=== PATIENT | male | born 1935 | race Caucasian/White ===

== ENCOUNTER 2020-09-30 16:19 | Emergency (ER) | payer OTHER, MEDICARE, BC, SELFPAY ==
--- NOTE | ~2020-09-30 | CT_ITS ---
EXAMINATION: CT ABDOMEN AND PELVIS WITH CONTRAST CLINICAL INFORMATION: Abdominal tenderness, bloating, nausea. Question hernia. COMPARISON: None TECHNIQUE: Multidetector volumetric images were obtained from the superior aspect of the liver through the pubic symphysis following administration 85 mL of Omnipaque 350 intravenous contrast. Sagittal and coronal reformatted images were obtained on the technologist's workstation. Oral contrast: No This CT examination was performed using dose optimization techniques as appropriate, variously including the following: *Automated exposure control *Adjustment of mA and/or kV according to patient size (this includes techniques or standardized protocols for targeted exams where dose is matched to indication/reason for exam; i.e. extremities or head) *Use of iterative reconstruction technique DLP: 438 mGy-cm FINDINGS: LUNG BASES: 0.7 cm left lower lobe groundglass nodule on series 7 image 11. Coronary artery calcifications are present. LIVER, GALLBLADDER, AND BILIARY TREE: The liver is normal in size, shape, and attenuation. No biliary ductal dilatation. 1.3 cm simple cyst in the left lobe of the liver. Multiple additional hypoattenuating lesions are seen scattered in the liver which are too small to fully characterize.. The gallbladder is unremarkable with no evidence of radiopaque gallstones, gallbladder wall thickening, or obvious pericholecystic inflammatory changes. PANCREAS: Unremarkable. SPLEEN: Unremarkable. ADRENAL GLANDS: Unremarkable. KIDNEYS AND URETERS: The kidneys are normal in size, shape, and attenuation. No hydronephrosis, hydroureter, or calculi seen. Mild symmetric perinephric stranding. 4.3 cm simple cyst exophytic at the upper pole of the left kidney. Additional indeterminant hypoattenuating lesions are seen in the left renal parenchyma at the mid to lower pole. BLADDER: Unremarkable. GASTROINTESTINAL TRACT: Small hiatal hernia. The stomach is decompressed. Normal caliber small bowel. No bowel obstruction. Normal appendix. Diffuse colonic diverticulosis noted. No diverticulitis. No free air. No free fluid. ABDOMINAL WALL: No significant hernia is appreciated. LYMPH NODES: Normal. VASCULAR: Normal caliber aorta with mild atherosclerotic calcification. PELVIC VISCERA: The prostate and seminal vesicles are unremarkable. OSSEOUS STRUCTURES: Bilateral L5 pars defects. Advanced degenerative changes throughout the visualized spine. No acute or suspicious osseous abnormality. Moderate degenerative changes of the hips. Chondrocalcinosis. CT/CT abdomen pelvis w con IMPRESSION: No bowel obstruction. No acute inflammatory changes. Diverticulosis without diverticulitis. Multiple hypoattenuating lesions are seen in the liver and left kidney. While the largest of these lesions are consistent with simple cysts, many additional are too small to further characterize. If clinically indicated an ultrasound could be performed on a nonemergent basis. Small hiatal hernia. No abdominal wall hernia.
[2020-09-30 16:38] VITALS: BP 136/65; PULSE 69; RESP 17; TEMP 36.7; O2SAT 95; BMI 22.7
[2020-09-30] MEDS: 0.9 % Sodium Chloride 1,000 ML 999 ML IVCONT (17:47)
[2020-09-30] MEDS: ondansetron HCL 4 MG/2 ML VIAL IVPUSH (17:50)
[2020-09-30] MEDS: Ketorolac Tromethamine 15 MG/ML VIAL IVPUSH (17:50)
--- NOTE | 2020-09-30 18:01 | ED.ABDPAIN ---
HPI - Abdominal Pain General Chief Complaint: Abdominal Pain Stated Complaint: abd pain Time Seen by Provider: 09/30/20 17:18 Source: patient Mode of arrival: ambulatory History of Present Illness HPI narrative: 84-year-old male with past medical history of hypertension, basal cell carcinoma, presenting to the ED complaining of abdominal pain /distension and nausea x a couple days. last BM today. Admits pain is intermittent, fluctuating in intensity, without radiation. Denies fever, chills, vomiting, diarrhea, constipation, dysuria/ hematuria, flank pain MD elicited complaint: abdominal pain Related Data Previous Rx's Medication Instructions Recorded alum-mag hydroxide-simeth [Maalox 5 ml PO 5XD PRN #30 ml 09/30/20 Advanced] dicyclomine 20 mg PO QID PRN #14 tab 09/30/20 famotidine [Pepcid] 20 mg PO BEDTIME #14 tab 09/30/20 ondansetron HCl [Zofran] 4 mg PO Q8H PRN #10 tab 09/30/20 Allergies Allergy/AdvReac Type Severity Reaction Status Date / Time No Known Allergies Allergy Mild NONE Verified 09/30/20 16:37 Review of Systems Review of Systems Constitutional: No Weight loss, No Fever, No Fatigue, No Malaise Cardiovascular: No Chest Pain, No SOB, No Edema Respiratory: No Cough, No Wheezing Gastrointestinal: + Nausea, No Vomiting, No Diarrhea, No Constipation, + Abdominal pain Genitourinary: No Dysuria, No Urinary Frequency, No Hematuria, No Flank Pain, No Urinary Flow Changes, No Hesitancy Musculoskeletal: No joint pain, No Myalgias Skin: No Skin Lesions, No rash Neuro: No Weakness, No Numbness, No Headache Yes all other systems are reviewed and are negative Physical Exam Vital Signs: Vital Signs: Last Vital Signs Temp 98.0 F 09/30/20 16:38 Pulse 69 09/30/20 16:38 Resp 17 09/30/20 16:38 BP 136/65 09/30/20 16:38 Pulse Ox 95 09/30/20 16:38 Body Mass Index 22.7 Const: General: cooperative and healthy appearing Orientation/consciousness: patient oriented x3 Limitations: no limitations HENMT: Head: Yes normal to inspection Ears: hearing grossly normal bilaterally General nose exam: Normal external nose present Face and sinus: Yes normal facial exam Eyes: General: appearance normal, both eyes and all related structures EOM: EOMs intact bilaterally Neck: Neck: Yes normal visual inspection Resp: Effort & Inspection: normal respiratory effort and not labored Cardio: Rate: regular rate GI: Other: +palpable ventral hernia, reducible Inspection: Yes normal to inspection Palpation (GI): Soft to palpation, Tenderness to palpation present (GI) (diffuse), no guarding and not rigid : General: Yes no CVA tenderness Back/Spine/Pelvis: Back: no CVA tenderness Skin: Rashes: no rashes Wounds: no wounds Neuro: General: patient oriented x3 Gait exam (Neuro): Normal gait present Extrem: General: Yes normal to inspection Course Course Course Narrative: - no leukocytosis, sodium 132, labs otherwise unremarkable /at patient's baseline, lactic negative - UA negative CT abdomen pelvis w con IMPRESSION: No bowel obstruction. No acute inflammatory changes. Diverticulosis without diverticulitis. Multiple hypoattenuating lesions are seen in the liver and left kidney. While the largest of these lesions are consistent with simple cysts, many additional are too small to further characterize. If clinically indicated an ultrasound could be performed on a nonemergent basis. Small hiatal hernia. No abdominal wall hernia. >> results discussed with patient including recent signs and symptoms and strict return precautions. Reports symptomatic improvement in the ED. Discussed recommended follow-up with PCP, he verbalized understanding feel safe for discharge home at this time MDM - Abdominal Pain MDM Narrative Medical decision making narrative: 84-year-old male with past medical history of hypertension, basal cell carcinoma, presenting to the ED complaining of abdominal pain /distension and nausea x a couple days. On exam VSS, NAD/well-appearing, abdomen soft with diffuse tenderness to palpation, no rebound or guarding. Palpable ventral hernia that is reducible. Concern for appendicitis, diverticulitis, SBO, vs ?incarcerated/ strangulated hernia. Plan: Labs, UA, CT AP, IVF, antiemetics, reassess Medical Records Attestation: I reviewed the patient's medical records. Lab Data Attestation: I reviewed the patient's lab results. Result diagrams: 09/30/20 17:44 09/30/20 17:44 Labs: Lab Results 09/30/20 09/30/20 09/30/20 Range/Units 17:44 17:44 17:44 WBC 10.6 (4.8-10.8) X10*3/uL RBC 5.43 (4.60-5.80) X10*6/uL Hgb 17.2 (14.0-18.0) g/dl Hct 49.3 (42-52) % MCV 90.8 (80-98) fL MCH 31.7 (27.0-33.0) pg MCHC 34.9 (31.0-36.0) g/dl RDW 12.2 (11.0-16.0) % Plt Count 213 (160-400) X10*3/uL MPV 10.5 (9.4-12.4) fL Immature Gran % (Auto) 0.9 H (0.0-0.4) % Neut % (Auto) 65.4 (45-73) % Lymph % (Auto) 17.0 L (20-40) % Wallace % (Auto) 15.7 H (2-11) % Eos % (Auto) 0.5 (0-4) % Baso % (Auto) 0.5 (0-2) % Lymph # (Auto) 1.8 (1.2-4.9) X10*3/uL Wallace # (Auto) 1.7 H (0.1-1.2) X10*3/uL Eos # (Auto) 0.1 (0.0-0.4) X10*3/uL Baso # (Auto) 0.1 (0.0-0.2) X10*3/uL Abs Immat Gran (auto) 0.10 H (0.00-0.03) X10*3/uL Absolute Neuts (auto) 6.9 (2.0-8.3) X10*3/uL Absolute Nucleated RBC 0.000 (0.0-0.012) X10*3/uL Nucleated RBC % (auto) 0.0 (0.0-0.2) /100WBC Smear Tech's Comments VERIFIED PT 11.4 (9.9-13.0) SEC INR 1.0 (0.9-1.1) APTT 31.4 (24.1-38.0) SEC Sodium 132 L (135-145) mmol/L Potassium 3.6 (3.3-5.1) mmol/L Chloride 97 (96-108) mmol/L Carbon Dioxide 23 (22-29) mmol/L Anion Gap 16 (12-20) BUN 10 (9-16) mg/dL Creatinine 0.88 (0.5-1.4) mg/dL Estim Creat Clear Calc 58.1 Estimated GFR > 60 Random Glucose 105 (60-115) mg/dL Lactic Acid (0.5-2.0) mmol/L Calcium 9.3 (8.4-10.2) mg/dL Magnesium 1.6 (1.6-2.6) mg/dL Total Bilirubin 1.3 H (0.0-1.0) mg/dL Direct Bilirubin 0.5 (0.0-0.5) mg/dL AST 15 (5-37) U/L ALT 12 (0-40) U/L Alkaline Phosphatase 98 (39-117) U/L Total Protein 6.6 (6.5-8.0) g/dL Albumin 4.1 (3.5-5.0) g/dL Lipase 13 (8-78) U/L Urine Color Urine Appearance Urine pH (5.0-8.0) Ur Specific Pollock (1.005-1.025) Urine Protein (NEG-TRACE) MG/DL Urine Glucose (UA) (NEG) MG/DL Urine Ketones (NEG) MG/DL Urine Blood (NEG) Urine Nitrite (NEG) Ur Leukocyte Esterase (NEG) Urine RBC (0) /HPF Urine WBC (0-4) /HPF Ur Squamous Epith Cells /LPF Urine Bacteria /LPF 09/30/20 09/30/20 Range/Units 17:44 17:44 WBC (4.8-10.8) X10*3/uL RBC (4.60-5.80) X10*6/uL Hgb (14.0-18.0) g/dl Hct (42-52) % MCV (80-98) fL MCH (27.0-33.0) pg MCHC (31.0-36.0) g/dl RDW (11.0-16.0) % Plt Count (160-400) X10*3/uL MPV (9.4-12.4) fL Immature Gran % (Auto) (0.0-0.4) % Neut % (Auto) (45-73) % Lymph % (Auto) (20-40) % Wallace % (Auto) (2-11) % Eos % (Auto) (0-4) % Baso % (Auto) (0-2) % Lymph # (Auto) (1.2-4.9) X10*3/uL Wallace # (Auto) (0.1-1.2) X10*3/uL Eos # (Auto) (0.0-0.4) X10*3/uL Baso # (Auto) (0.0-0.2) X10*3/uL Abs Immat Gran (auto) (0.00-0.03) X10*3/uL Absolute Neuts (auto) (2.0-8.3) X10*3/uL Absolute Nucleated RBC (0.0-0.012) X10*3/uL Nucleated RBC % (auto) (0.0-0.2) /100WBC Smear Tech's Comments PT (9.9-13.0) SEC INR (0.9-1.1) APTT (24.1-38.0) SEC Sodium (135-145) mmol/L Potassium (3.3-5.1) mmol/L Chloride (96-108) mmol/L Carbon Dioxide (22-29) mmol/L Anion Gap (12-20) BUN (9-16) mg/dL Creatinine (0.5-1.4) mg/dL Estim Creat Clear Calc Estimated GFR Random Glucose (60-115) mg/dL Lactic Acid 1.3 (0.5-2.0) mmol/L Calcium (8.4-10.2) mg/dL Magnesium (1.6-2.6) mg/dL Total Bilirubin (0.0-1.0) mg/dL Direct Bilirubin (0.0-0.5) mg/dL AST (5-37) U/L ALT (0-40) U/L Alkaline Phosphatase (39-117) U/L Total Protein (6.5-8.0) g/dL Albumin (3.5-5.0) g/dL Lipase (8-78) U/L Urine Color YELLOW Urine Appearance CLEAR Urine pH 6.5 (5.0-8.0) Ur Specific Pollock <= 1.005 (1.005-1.025) Urine Protein NEG (NEG-TRACE) MG/DL Urine Glucose (UA) NEG (NEG) MG/DL Urine Ketones NEG (NEG) MG/DL Urine Blood TRACE (NEG) Urine Nitrite NEG (NEG) Ur Leukocyte Esterase NEG (NEG) Urine RBC 0-2 (0) /HPF Urine WBC 0-2 (0-4) /HPF Ur Squamous Epith Cells NONE /LPF Urine Bacteria NONE /LPF Discharge Plan Discharge Clinical Impression: Abdominal pain Patient Disposition: Home, Self-Care Instructions: Abdominal Pain (ED) Additional Instructions: your blood work was reassuring today in the ED Your CT scan was unremarkable other than some liver lesion and left kidney lesions that should be further assessed with an ultrasound Maalox, and Pepcid will help with acid reflux Zofran as an antinausea medication, take as needed Bentyl will help with abdominal spasming/pain, take as needed for abdominal discomfort Follow-up with her primary care doctor If her symptoms persist or worsen, pain becomes unbearable, have fever, persistent nausea / vomiting, or unable to eat please return to the ED Prescriptions: New ondansetron HCl [Zofran] 4 mg tablet 4 mg PO Q8H PRN (Reason: nausea and vomiting) Qty: 10 RF: 0 famotidine [Pepcid] 20 mg tablet 20 mg PO BEDTIME Qty: 14 RF: 0 alum-mag hydroxide-simeth [Maalox Advanced] 200-200-20 mg/5 mL suspension 5 ml PO 5XD PRN (Reason: dyspepsia) Qty: 30 RF: 0 dicyclomine 20 mg tablet 20 mg PO QID PRN (Reason: abdominal discomfort) Qty: 14 RF: 0 Referrals: Yakov Sandra MD [Primary Care Provider] - 2 days [facility] Past Medical History Attestation statement: The following information was validated with the patient. Medical History (Updated 09/30/20 @ 19:32 by DEYVI Rothman) Hypertension Skin cancer, basal cell Surgical History (Updated 09/30/20 @ 16:40 by Sherrell Summers RN) H/O shoulder surgery Knee joint replacement status Social History Social History Alcohol intake: never Smoked in Last 30 Days: No Use of substances other than those prescribed or required for medical reasons: No Advance Directives: No Advance Directives Information Provided: No
[2020-09-30 18:03] LABS: Glucose Urine UA NEG (NEG); Leukocyte Esterase Urine NEG (NEG); Nitrite Urine NEG (NEG); PH 6.5 (5.0-8.0); Specific Gravity - Urine <= 1.005 (1.005-1.025); Urine Blood TRACE (NEG); Urine Ketones NEG (NEG); Urine Protein NEG (NEG-TRACE)
[2020-09-30 18:05] LABS: Appearance Urine CLEAR; Color Urine YELLOW
[2020-09-30 18:10] LABS: Prothrombin Time 11.4 SEC (9.9-13.0)
[2020-09-30 18:12] LABS: Partial Thromboplastin Time 31.4 SEC (24.1-38.0); RBC Urine 0-2 /HPF (0); WBC Urine 0-2 /HPF (0-4)
[2020-09-30 18:18] LABS: Basophils Absolute Auto 0.1 X10*3/uL (0.0-0.2); Basophils Percent Auto 0.5 % (0-2); Eosinophils Absolute Auto 0.1 X10*3/uL (0.0-0.4); Eosinophils Percent Auto 0.5 % (0-4); Hematocrit 49.3 % (42-52); Hemoglobin 17.2 g/dl (14.0-18.0); Imm Gran Pct Auto 0.9 % (0.0-0.4); Lymphocytes Absolute Auto 1.8 X10*3/uL (1.2-4.9); MANUAL DIFF FLAG SCAN; Mean Corpuscular HGB Conc 34.9 g/dl (31.0-36.0); Mean Corpuscular Hemoglobin 31.7 pg (27.0-33.0); Mean Corpuscular Volume 90.8 fL (80-98); Mean Platelet Volume 10.5 fL (9.4-12.4); Monocytes Absolute Auto 1.7 X10*3/uL (0.1-1.2); Monocytes Percent Auto 15.7 % (2-11); Neutrophils Absolute Auto 6.9 X10*3/uL (2.0-8.3); Neutrophils Percent Auto 65.4 % (45-73); Platelet Count 213 X10*3/uL (160-400); Red Blood Count 5.43 X10*6/uL (4.60-5.80); Red Cell Distribution Width 12.2 % (11.0-16.0); SCAN SMEAR FLAG 1; White Blood Count 10.6 X10*3/uL (4.8-10.8)
[2020-09-30 18:23] LABS: Lactic Acid 1.3 mmol/L (0.5-2.0)
[2020-09-30 18:27] LABS: Alanine Aminotransferase 12 U/L (0-40); Albumin Level 4.1 g/dL (3.5-5.0); Alkaline Phosphatase 98 U/L (39-117); Anion Gap 16 (12-20); Aspartate Amino Transferase 15 U/L (5-37); Bilirubin Direct 0.5 mg/dL (0.0-0.5); Bilirubin Total 1.3 mg/dL (0.0-1.0); Blood Urea Nitrogen 10 mg/dL (9-16); Calcium 9.3 mg/dL (8.4-10.2); Carbon Dioxide 23 mmol/L (22-29); Chloride 97 mmol/L (96-108); Creatinine Clr Calc Pharmacy 58.1; Estimated Glomerular Filt Rate > 60; Glucose Random 105 mg/dL (60-115); Lipase 13 U/L (8-78); Magnesium 1.6 mg/dL (1.6-2.6); Potassium 3.6 mmol/L (3.3-5.1); Sodium 132 mmol/L (135-145); Total Protein 6.6 g/dL (6.5-8.0)
[2020-09-30 18:37] LABS: SLIDE REVIEW VERIFIED
[2020-09-30] MEDS: iohexoL 350 MG/ML 100 ML INFUS..BTL IV (18:54)
== END 2020-09-30 20:24 | disposition home or self-care (01) ==
PROVIDERS: Physician Assistant; Emergency Provider Emergency Medicine; PCP Internal Medicine
DX: R10.9 Unspecified abdominal pain (principal); I10 Essential (primary) hypertension
CPT/HCPCS: 36415; 74177; 80048; 80076; 81001; 83605; 83690; 83735; 85025; 85610; 85730; 96361; 96374; 96375; 99284; J1885; J2405; Q9967

== ENCOUNTER 2021-11-12 08:31 | Outpatient (REF) | payer MEDICARE, BC, SELFPAY ==
[2021-11-12 10:03] LABS: Anion Gap 16 (12-20); Carbon Dioxide 23 mmol/L (22-29); Chloride 102 mmol/L (96-108); Potassium 3.9 mmol/L (3.3-5.1); Sodium 137 mmol/L (135-145)
== END 2021-11-12 08:32 | disposition home or self-care (01) ==
LOC: HO.LAB 08:31
PROVIDERS: PCP Internal Medicine; Visit Provider Internal Medicine
DX: E87.1 Hypo-osmolality and hyponatremia (principal)
CPT/HCPCS: 36415; 80051

== ENCOUNTER 2021-12-21 09:30 | Emergency (ER) | payer OTHER, MEDICARE, BC, SELFPAY ==
--- NOTE | ~2021-12-21 | XR_ITS ---
EXAMINATION: XR HAND, LEFT CLINICAL INFORMATION: Pain COMPARISON: None TECHNIQUE: Left wrist is imaged in 3 views. FINDINGS: There is severe carpal arthropathy with diffuse joint narrowing, greatest proximal radial carpal compartment. The navicular is seated within a pressure erosion at distal radius. The capitate and hamate are retracted proximally. There is severe widening of the scapholunate joint consistent with scapholunate ligament tear. The lunate is displaced to the ulnar side. There is chondrocalcinosis in region of triangular fibrocartilage. Degenerative changes are present at the sigmoid notch. There is mild narrowing MCP joints. No erosive changes. The interphalangeal joints are grossly unremarkable. 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
[2021-12-21 09:55] VITALS: BP 124/57; PULSE 57; RESP 18; TEMP 36.9; O2SAT 98; BMI 22.5
[2021-12-21 11:30] VITALS: BP 147/71; PULSE 57; RESP 18; TEMP 37; O2SAT 97
--- NOTE | 2021-12-21 11:42 | ED_ITS ---
HPI - General Adult General Chief complaint: Wound/Laceration Stated complaint: wound on L hand Time Seen by Provider: 12/21/21 10:03 Source: patient and family (son) Mode of arrival: ambulatory Limitations: no limitations History of Present Illness HPI narrative: Patient is an 86 year old male presenting to the emergency department today with left hand pain. Patient states that his hand slipped down a piece of plywood and a large splinter went through his palm. Patient states that he was able to remove all of it without incident but now it is bleeding. Patient states that his tetanus shot was within the last 5 years. Patient denies any dizziness, lightheadedness, abdominal pain, nausea, vomiting, fever, chills, blurry vision, double vision, loss of vision, chest pain, difficulty breathing, shortness of breath, back pain, night sweats, pain with urination, increased urinary frequency, increased urinary urgency, blood in his urine or stool, syncope or a near syncopal episode, bowel incontinence, bladder incontinence, bowel retention, bladder retention, or any other complaints at this time. Onset (ago): hour(s) Location: left and upper extremity (hand) Radiation: non-radiation Severity: mild Severity scale (1-10): 2 Quality: dull Pain Consistency: constant Relieving factors: none Exacerbating factors: none Associated symptoms: denies other symptoms Treatments prior to arrival: none Related Data Previous Rx's Medication Instructions Recorded aluminum-mag hydroxide-simethicone 5 ml PO 5XD PRN dyspepsia #30 mL 09/30/20 200 mg-200 mg-20 mg/5 mL oral susp (Maalox Advanced) dicyclomine 20 mg tablet 20 mg PO QID PRN abdominal 09/30/20 discomfort #14 tabs famotidine 20 mg tablet (Pepcid) 20 mg PO BEDTIME #14 tabs 09/30/20 ondansetron HCl 4 mg tablet 4 mg PO Q8H PRN nausea and 09/30/20 (Zofran) vomiting #10 tabs cephalexin 500 mg capsule 500 mg PO Q6H 7 days #28 caps 12/21/21 Allergies Allergy/AdvReac Type Severity Reaction Status Date / Time No Known Allergies Allergy Mild NONE Verified 09/30/20 16:37 Review of Systems Constitutional: Constitutional: Reports no additional constitutional compl aints, Denies chills, Denies fever(s) and Denies night sweats Eyes: Eyes: Reports no additional eye complaints, Denies blurry vision, Denies change in vision, Denies diplopia, Denies eye discharge, Denies loss of vision and Denies eye pain ENT: Denies dizziness Cardiovascular: Cardiovascular: Reports no additional cardiovascular complaints, Denies chest pain, Denies lightheadedness, Denies Loss of Consciousness and Denies dyspnea Respiratory: Respiratory: Reports no additional respiratory complaints and Denies dyspnea Gastrointestinal: Gastrointestinal: Reports no additional gastrointestinal complaints, Denies abdominal pain, Denies melena, Denies hematochezia, Denies change in bowel habits and Denies change in stool character Genitourinary: Genitourinary: Reports no additional male genitourinary complaints, Denies hematuria, Denies oliguria, Denies difficulty urinating, Denies dysuria, Denies urinary frequency, Denies urinary hesitancy, Denies urinary incontinence and Denies urinary urgency Musculoskeletal: Musculoskeletal: Reports no additional musculoskeletal complaints, Denies numbness and Denies tingling Comments: left hand pain Integumentary/Breasts: Comments: left hand laceration Neurologic: Denies dizziness, Denies loss of vision, Denies numbness and Denies tingling Psychiatric: Psychiatric: Reports no additional psychiatric complaints Endocrine: Endocrine: Reports no additional endocrine complaints Hematologic/Lymphatic: Hematologic/Lymphatic: Reports no additional hematologic/lymphatic complaints Allergic/Immunologic: Allergic/Immunologic: Reports no additional allergic/immunologic complaints [facility] Past Medical History Attestation statement: The following information was validated with the patient. Source: old records reviewed Medical History Hypertension Skin cancer, basal cell Surgical History H/O shoulder surgery Knee joint replacement status Social History Social History Alcohol intake: current Alcohol intake frequency: 0-2 drinks per day Alcohol type: beer Patient Tobacco Use Status: Never used Tobacco Use of substances other than those prescribed or required for medical reasons: No Advance Directives: No Physical Exam ED Vital Signs: Vital Signs - 24 hr 12/21/21 09:55 12/21/21 11:30 Temperature 98.4 F 98.6 F Pulse Rate 57 57 Respiratory Rate 18 18 Blood Pressure 124/57 L 147/71 H Pulse Oximetry 98 97 Oxygen Delivery Method Room Air Room Air BMI result Body Mass Index 22.5 Const General: cooperative, no acute distress, alert and awake Nutritional Appearance: well nourished Orientation/consciousness: patient oriented x3 Limitations: no limitations HENMT Head: Yes normal to inspection and Yes atraumatic Ears: hearing grossly normal bilaterally and external ears normal General nose exam: Normal external nose present, no nasal discharge noted and no epistaxis Face and sinus: Yes normal facial exam, No abrasion and No laceration Mouth: Normal oral and palatal mucosa present, no drooling and no muffled voice Eyes General: appearance normal, both eyes and all related structures Periorbital: periorbital findings normal Eyelids: Yes eyelids normal Conjunctivae: conjunctivae normal Pupils: Equal, round and reactive pupils present EOM: EOMs intact bilaterally Neck Neck: Yes normal visual inspection, Yes full ROM and Yes no lymphadenopathy Chest Chest palpation & inspection: normal inspection of the chest Resp Effort & Inspection: normal respiratory effort and able to speak in complete sentences Auscultation: clear to auscultation bilaterally Cardio Rate: regular rate Rhythm: regular rhythm GI Inspection: Yes normal to inspection Neuro General: patient oriented x3 and moves all extremities Cranial nerves: Yes Equal, round and reactive pupils present Cognition (Neuro): normal cognition Motor exam (neuro): 5/5 motor strength present throughout Sensory Exam: Normal double simultaneous stimulation for sensation Coordination: [id number] test normal Extrem Other: small superficial laceration to the left ulnar palm with no active bleeding and no retained foreign bodies General: Yes full ROM and Yes capillary refill normal Psych Appearance: grossly normal Mental Status: mental status grossly normal Affect: normal affect Attitude: cooperative Thought process: Normal thought process present Thought content: Normal thought content present Insight: Good insight present (Psych) Medical Decision Making MDM Narrative Medical decision making narrative: Patient is an 86 year old male presenting to the emergency department today with left hand pain. Patient's physical exam showed a superficial laceration to the left ulnar palm with no active bleeding. Patient's left hand x-ray showed possible scapholunate advanced collapse injury. I explained my physical exam findings as well as all test results to the patient and the patient's son. I answered all questions asked by the patient and the patient's son. Patient was instructed to follow up with orthopedics and place his injured right wrist in a splint. Patient's laceration was repaired with dermabond, without incident. I stressed the importance of the patient taking his medication as prescribed. I stressed the importance of the patient following up with his primary care provider. I stressed the importance of the patient returning to the emergency department immediately if his symptoms were to worsen or if he were to develop any dizziness, shortness of breath, difficulty breathing, chest pain, blurry vision, loss of vision, nausea, vomiting, abdominal pain, fever, chills, back pain, or any other complaints. Patient and the patient's son verbalized agreement and understanding with this treatment plan and discharge. Medical Records Medical records reviewed: Yes I reviewed the patient's medical records. Imaging Data Left hand x-ray: Attestation: I personally reviewed and interpreted this imaging study as follows: My impression: No acute fracture, possible SLAC injury. Radiologist's impression: EXAMINATION: XR HAND, LEFT CLINICAL INFORMATION: Pain? COMPARISON: None? TECHNIQUE: Left wrist is imaged in 3 views. FINDINGS: There is severe carpal arthropathy with diffuse joint narrowing, greatest proximal radial carpal compartment. The navicular is seated within a pressure erosion at distal radius. The capitate and hamate are retracted proximally. There is severe widening of the scapholunate joint consistent with scapholunate ligament tear. The lunate is displaced to the ulnar side. There is chondrocalcinosis in region of triangular fibrocartilage. Degenerative changes are present at the sigmoid notch. There is mild narrowing MCP joints. No erosive changes. The interphalangeal joints are grossly unremarkable. 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 Dictated By: Corbin Brown MD Signed By: Electronically signed by Corbin Brown MD 12/21/21 1227 Discharge Plan Discharge Clinical Impression: Laceration, SLAC (scapholunate advanced collapse) of wrist Patient Disposition: Home, Self-Care Instructions: Laceration (ED) Additional Instructions: Do NOT get the repaired area wet for at LEAST 1 week. Allow the glue to fall off on its own, do NOT pick at it. Follow up with your primary care provider. Return to the emergency department immediately if your symptoms worsen or if you develop any dizziness, shortness of breath, difficulty breathing, chest pain, blurry vision, loss of vision, nausea, vomiting, abdominal pain, fever, chills, back pain, or any other complaints. Prescriptions: New cephalexin 500 mg capsule 500 mg PO Q6H 7 Days Qty: 28 0RF No Action ondansetron HCl [Zofran] 4 mg tablet 4 mg PO Q8H PRN (Reason: nausea and vomiting) Qty: 10 0RF famotidine [Pepcid] 20 mg tablet 20 mg PO BEDTIME Qty: 14 0RF alum-mag hydroxide-simeth [Maalox Advanced] 200-200-20 mg/5 mL suspension 5 ml PO 5XD PRN (Reason: dyspepsia) Qty: 30 0RF Rx Instructions: administer between meals and at bedtime dicyclomine 20 mg tablet 20 mg PO QID PRN (Reason: abdominal discomfort) Qty: 14 0RF Referrals: Yakov Sandra MD [Primary Care Provider] - Interventions: ED Discharge Assessment Last Done: 12/21/21 12:08 Discharge Date/Time: 12/21/21 12:11 Print Language: Gibralt[place]
== END 2021-12-21 12:11 | disposition home or self-care (01) ==
PROVIDERS: Emergency Provider Emergency Medicine; PCP Internal Medicine
DX: S61.512A Laceration without foreign body of left wrist, initial encounter (principal); S63.002A Unspecified subluxation of left wrist and hand, initial encounter; M19.032 Primary osteoarthritis, left wrist; M25.532 Pain in left wrist; Y28.9XXA Contact with unspecified sharp object, undetermined intent, initial encounter; Y93.9 Activity, unspecified; Y92.9 Unspecified place or not applicable; Y99.9 Unspecified external cause status; Z79.899 Other long term (current) drug therapy
CPT/HCPCS: 12001; 29125; 73130; 99283; 99284

== ENCOUNTER 2021-12-27 15:25 | Inpatient (IN) | payer OTHER, SELFPAY ==
--- NOTE | ~2021-12-27 | XR_ITS ---
EXAMINATION: XR CHEST CLINICAL INFORMATION: Cough. COMPARISON: Chest x-ray 05/02/2015 TECHNIQUE: Frontal view of the chest was obtained. 11:29 PM FINDINGS: Patchy parenchymal airspace opacity in the right upper lobe and left lung base. May be inflammatory or infectious in etiology. No pulmonary vascular congestion. No pleural effusion. Heart size is normal. Cardiac mediastinal contours are normal. XR/XR chest 1V IMPRESSION: Patchy parenchymal airspace opacity in the right upper lobe and left lower lobe concerning for inflammatory infectious etiology. Consider short-term follow-up chest x-ray to ensure clearing.
--- NOTE | ~2021-12-27 | CT_ITS ---
EXAMINATION: CT ABDOMEN AND PELVIS WITHOUT CONTRAST CLINICAL INFORMATION: Hematuria, rule out kidney stone COMPARISON: 09/30/2020 TECHNIQUE: Multidetector volumetric imaging was performed from the superior aspect of the liver through the pubic symphysis. Sagittal and coronal reformatted images were obtained on the technologist's workstation. This CT examination was performed using dose optimization techniques as appropriate, variously including the following: *Automated exposure control *Adjustment of mA and/or kV according to patient size (this includes techniques or standardized protocols for targeted exams where dose is matched to indication/reason for exam; i.e. extremities or head) *Use of iterative reconstruction technique DLP: 634 mGy-cm FINDINGS: LUNG BASES: Trace dependent atelectasis. Coronary artery calcifications are present. LIVER, GALLBLADDER, AND BILIARY TREE: A few scattered small hypoattenuating lesions in the liver are most suggestive of cysts. No intrahepatic biliary ductal dilatation. The gallbladder is unremarkable with no evidence of radiopaque gallstones, gallbladder wall thickening, or obvious pericholecystic inflammatory changes. PANCREAS: Partial fatty atrophy noted. SPLEEN: Unremarkable. ADRENAL GLANDS: Unremarkable. KIDNEYS AND URETERS: Redemonstrated left upper pole renal cyst; no follow-up recommended. No hydronephrosis or obstructing calculus bilaterally. Redemonstrated left calyceal calcification with linear configuration, without significant change from prior. Bilateral perinephric stranding is similar to prior. BLADDER: Unremarkable. GASTROINTESTINAL TRACT: No evidence of bowel obstruction. There is colonic diverticulosis without diverticulitis. The appendix is unremarkable. No free fluid or free air is seen. ABDOMINAL WALL: Small bilateral fat-containing inguinal hernias. LYMPH NODES: Normal. VASCULAR: Scattered atherosclerotic calcifications. PELVIC VISCERA: Unremarkable. OSSEOUS STRUCTURES: Degenerative changes are noted in the spine. CT/CT abdomen pelvis wo IV con IMPRESSION: 1. No hydronephrosis or obstructing calculus. 2. Colonic diverticulosis without diverticulitis.
[2021-12-27 15:43] VITALS: BP 122/68; PULSE 58; RESP 18; TEMP 36.7; O2SAT 95; BMI 22.5
[2021-12-27 16:01] LABS: MANUAL DIFF FLAG NO
[2021-12-27 16:03] LABS: Basophils Percent Auto 0.4 % (0-2); Eosinophils Percent Auto 0.1 % (0-4); Hematocrit 45.3 % (42.0-52.0); Hemoglobin 15.5 g/dl (14.0-18.0); Imm Gran Abs Auto 0.04 X10*3/uL (0.00-0.03); Imm Gran Pct Auto 0.5 % (0.0-0.4); Lymphocytes Absolute Auto 0.8 X10*3/uL (1.2-4.9); Lymphocytes Percent Auto 10.6 % (20-40); Mean Corpuscular HGB Conc 34.2 g/dl (31.0-36.0); Mean Corpuscular Hemoglobin 31.2 pg (27.0-33.0); Mean Corpuscular Volume 91.1 fL (80.0-98.0); Mean Platelet Volume 11.1 fL (9.4-12.4); Monocytes Absolute Auto 1.4 X10*3/uL (0.1-1.2); Monocytes Percent Auto 18.7 % (2-11); Neutrophils Absolute Auto 5.3 x10*3/uL (2.0-8.3); Neutrophils Percent Auto 69.7 % (45-73); Platelet Count 166 X10*3/uL (160-400); Red Blood Count 4.97 X10*6/uL (4.60-5.80); Red Cell Distribution Width 12.7 % (11.0-16.0); White Blood Count 7.6 X10*3/uL (4.8-10.8)
[2021-12-27 16:29] LABS: Alanine Aminotransferase 18 U/L (0-40); Albumin Level 3.4 g/dL (3.5-5.0); Alkaline Phosphatase 77 U/L (39-117); Anion Gap 15 (12-20); Aspartate Amino Transferase 29 U/L (5-37); Bilirubin Direct 0.4 mg/dL (0.0-0.5); Bilirubin Total 0.6 mg/dL (0.0-1.0); Blood Urea Nitrogen 14 mg/dL (9-16); Calcium 8.4 mg/dL (8.4-10.2); Carbon Dioxide 25 mmol/L (22-29); Chloride 96 mmol/L (96-108); Creatinine Clr Calc Pharmacy 44.1; Estimated Glomerular Filt Rate > 60; Glucose Random 145 mg/dL (60-115); Lipase 19 U/L (8-78); Potassium 3.9 mmol/L (3.3-5.1); Sodium 132 mmol/L (135-145); Total Protein 5.8 g/dL (6.5-8.0)
[2021-12-27 16:34] LABS: COVID-19 Test Negative (Negative); IDNOW Serial# 55D5AD1C
--- NOTE | 2021-12-27 23:11 | ED.GENADULT ---
HPI - General Adult General Chief complaint: General Medical Stated complaint: fever/nausea Time Seen by Provider: 12/27/21 23:09 Source: patient and family (Son) Mode of arrival: ambulatory Limitations: no limitations History of Present Illness HPI narrative: 86-year-old male came in for evaluation of decreased p.o. intake and generalized weakness. Patient was seen in the emergency department few days ago for left hand wood splinter removal patient was started on Keflex, patient stated for the past week has been in bed with decreased p.o. intake has no appetite to food, decrease in energy overall, subjective fever, cough, patient also noted very concentrated urine with frequency urination but no dysuria. Also been having mild coughing with no production of sputum. Patient declined CP, no SOB, no abdominal pain, no nausea, no vomiting, no diarrhea. No sick contacts, no recent travel. Related Data Previous Rx's Medication Instructions Recorded aluminum-mag hydroxide-simethicone 5 ml PO 5XD PRN dyspepsia #30 mL 09/30/20 200 mg-200 mg-20 mg/5 mL oral susp (Maalox Advanced) dicyclomine 20 mg tablet 20 mg PO QID PRN abdominal 09/30/20 discomfort #14 tabs famotidine 20 mg tablet (Pepcid) 20 mg PO BEDTIME #14 tabs 09/30/20 ondansetron HCl 4 mg tablet 4 mg PO Q8H PRN nausea and 09/30/20 (Zofran) vomiting #10 tabs cephalexin 500 mg capsule 500 mg PO Q6H 7 days #28 caps 12/21/21 Allergies Allergy/AdvReac Type Severity Reaction Status Date / Time No Known Allergies Allergy Mild NONE Verified 12/27/21 15:43 Review of Systems Review of Systems: All other systems are reviewed and are negative Constitutional: Reports as per HPI and Reports no additional constitutional complaints Eyes: Reports as per HPI and Reports no additional eye complaints Reports system reviewed and no additional complaints, except as documented Cardiovascular: Reports as per HPI and Reports no additional cardiovascular complaints Respiratory: Reports as per HPI and Reports no additional respiratory complaints Gastrointestinal: Reports as per HPI and Reports no additional gastrointestinal complaints Genitourinary: Reports no additional female genitourinary complaints Musculoskeletal: Reports no additional musculoskeletal complaints Skin/Breast: Reports system reviewed and no additional complaints, except as docu Psychiatric: Reports no additional psychiatric complaints Endocrine: Reports no additional endocrine complaints Hematologic/Lymphatic: Reports no additional hematologic/lymphatic complaints Allergic/Immunologic: Reports no additional allergic/immunologic complaints Reports system reviewed and no additional complaints, except as documented and Reports Abnormal speech present [facility] Past Medical History Medical History Hypertension Skin cancer, basal cell Surgical History H/O shoulder surgery Knee joint replacement status Social History Social History Alcohol intake: current Alcohol intake frequency: 0-2 drinks per day Alcohol type: beer Patient Tobacco Use Status: Never used Tobacco Advance Directives: No Advance Directives Information Provided: Yes Physical Exam ED Vital Signs: Vital Signs - 24 hr 12/27/21 15:43 Temperature 98.0 F Pulse Rate 58 Respiratory Rate 18 Blood Pressure 122/68 Pulse Oximetry 95 Oxygen Delivery Method Room Air BMI result Body Mass Index 22.5 Vital signs have been reviewed as appeared to be correct. Blood pressure normal. Heart rate normal. Respiration rate normal. Temperature normal. Oxygen saturation normal. Appearance: Alert. Oriented X3. No acute distress. Head: Normal external exam. Normocephalic. Atraumatic. No [place] signs noted. No raccoon eyes noted Eyes: PERRLA. EOMI. Conjunctiva and sclera normal. Eyelids normal. ENT: TM's Normal. Pharynx normal. Uvula midline. Moist mucous membranes. No trismus noted. No drooling noted. No muffled voice noted. Neck: Normal inspection. Neck supple. FROM. No adenopathy. Thyroid Normal. No meningeal signs. No neck mass noted. CVS: Normal heart rate and rhythm. Heart sound normal. No murmurs noted. Pulses normal throughout. Respiratory: No respiratory distress. Painless inspiration. Breath sounds normal. No wheezes/rales/rhonchi noted. Chest nontender. No accessory muscle usage noted or decreased air movement noted. Abdomen: Soft and nontender. Bowel sounds normal in all 4 quadrants. No distention noted. No organomegaly noted. No visible injury noted. Back: No CVA tenderness. Full range of motion noted. Skin: Skin warm and dry. Normal skin color. Normal skin turgor. No rashes/lesions/lacerations noted. Extremities: No lower extremity edema. Extremities exhibit normal range of motion. Extremities nontender. Neuro: Oriented X 3. Cranial nerve exam: II-XII are grossly intact No motor deficit. No sensory deficit. Reflexes normal. Course Course Course Narrative: 86-year-old male who lives home alone came in for failure to thrive and deconditioning with generalized weakness found to have multilobar pneumonia and also cystitis no SIRS criteria. Patient is getting IV ceftriaxone and Zithromax. Medical Decision Making Medical Records Medical records reviewed: Yes I reviewed the patient's medical records. Lab Data Lab results reviewed: Yes I reviewed the patient's lab results. Result diagrams: 12/27/21 15:57 12/27/21 15:57 Labs: Lab Results 12/27/21 12/27/21 12/27/21 Range/Units 15:57 15:57 15:57 WBC 7.6 (4.8-10.8) X10*3/uL RBC 4.97 (4.60-5.80) X10*6/uL Hgb 15.5 (14.0-18.0) g/dl Hct 45.3 (42.0-52.0) % MCV 91.1 (80.0-98.0) fL MCH 31.2 (27.0-33.0) pg MCHC 34.2 (31.0-36.0) g/dl RDW 12.7 (11.0-16.0) % Plt Count 166 (160-400) X10*3/uL MPV 11.1 (9.4-12.4) fL Immature Gran % (Auto) 0.5 H (0.0-0.4) % Neut % (Auto) 69.7 (45-73) % Lymph % (Auto) 10.6 L (20-40) % [place] % (Auto) 18.7 H (2-11) % Eos % (Auto) 0.1 (0-4) % Baso % (Auto) 0.4 (0-2) % Lymph # (Auto) 0.8 L (1.2-4.9) X10*3/uL [place] # (Auto) 1.4 H (0.1-1.2) X10*3/uL Eos # (Auto) 0.0 (0.0-0.4) X10*3/uL Baso # (Auto) 0.0 (0.0-0.2) X10*3/uL Abs Immat Gran (auto) 0.04 H (0.00-0.03) X10*3/uL Absolute Neuts (auto) 5.3 (2.0-8.3) x10*3/uL Absolute Nucleated RBC 0.000 (0.0-0.012) X10*3/uL Nucleated RBC % (auto) 0.0 (0.0-0.2) /100WBC Sodium 132 L (135-145) mmol/L Potassium 3.9 (3.3-5.1) mmol/L Chloride 96 (96-108) mmol/L Carbon Dioxide 25 (22-29) mmol/L Anion Gap 15 (12-20) BUN 14 (9-16) mg/dL Creatinine 1.11 (0.5-1.4) mg/dL Estim Creat Clear Calc 44.1 Estimated GFR > 60 Random Glucose 145 H D (60-115) mg/dL Lactic Acid (0.5-2.0) mmol/L Calcium 8.4 D (8.4-10.2) mg/dL Total Bilirubin 0.6 (0.0-1.0) mg/dL Direct Bilirubin 0.4 (0.0-0.5) mg/dL AST 29 D (5-37) U/L ALT 18 (0-40) U/L Alkaline Phosphatase 77 D (39-117) U/L Total Protein 5.8 L (6.5-8.0) g/dL Albumin 3.4 L (3.5-5.0) g/dL Lipase 19 (8-78) U/L Urine Color Urine Appearance Urine pH (5.0-9.0) Ur Specific [place] (1.005-1.025) Urine Protein (Neg-Trace) mg/dL Urine Glucose (UA) (Negative) mg/dL Urine Ketones (Negative) mg/dL Urine Blood (Negative) Urine Nitrite (Negative) Ur Leukocyte Esterase (Negative) Urine RBC (0-2) /HPF Urine WBC (0-5) /HPF Ur Squamous Epith Cells (0-2) /HPF Urine Bacteria (None Seen) Hyaline Casts (0-2) /LPF COVID-19 (LAURA) Negative (Negative) COVID-19 Clin Com See Note 12/27/21 12/28/21 Range/Units 23:33 00:28 WBC (4.8-10.8) X10*3/uL RBC (4.60-5.80) X10*6/uL Hgb (14.0-18.0) g/dl Hct (42.0-52.0) % MCV (80.0-98.0) fL MCH (27.0-33.0) pg MCHC (31.0-36.0) g/dl RDW (11.0-16.0) % Plt Count (160-400) X10*3/uL MPV (9.4-12.4) fL Immature Gran % (Auto) (0.0-0.4) % Neut % (Auto) (45-73) % Lymph % (Auto) (20-40) % [place] % (Auto) (2-11) % Eos % (Auto) (0-4) % Baso % (Auto) (0-2) % Lymph # (Auto) (1.2-4.9) X10*3/uL [place] # (Auto) (0.1-1.2) X10*3/uL Eos # (Auto) (0.0-0.4) X10*3/uL Baso # (Auto) (0.0-0.2) X10*3/uL Abs Immat Gran (auto) (0.00-0.03) X10*3/uL Absolute Neuts (auto) (2.0-8.3) x10*3/uL Absolute Nucleated RBC (0.0-0.012) X10*3/uL Nucleated RBC % (auto) (0.0-0.2) /100WBC Sodium (135-145) mmol/L Potassium (3.3-5.1) mmol/L Chloride (96-108) mmol/L Carbon Dioxide (22-29) mmol/L Anion Gap (12-20) BUN (9-16) mg/dL Creatinine (0.5-1.4) mg/dL Estim Creat Clear Calc Estimated GFR Random Glucose (60-115) mg/dL Lactic Acid 1.3 (0.5-2.0) mmol/L Calcium (8.4-10.2) mg/dL Total Bilirubin (0.0-1.0) mg/dL Direct Bilirubin (0.0-0.5) mg/dL AST (5-37) U/L ALT (0-40) U/L Alkaline Phosphatase (39-117) U/L Total Protein (6.5-8.0) g/dL Albumin (3.5-5.0) g/dL Lipase (8-78) U/L Urine Color Dark Yellow Urine Appearance Clear Urine pH 6.0 (5.0-9.0) Ur Specific [place] 1.025 (1.005-1.025) Urine Protein 30 (1+) H (Neg-Trace) mg/dL Urine Glucose (UA) Negative (Negative) mg/dL Urine Ketones 15 (Negative) mg/dL Urine Blood Small (1+) H (Negative) Urine Nitrite Negative (Negative) Ur Leukocyte Esterase Negative (Negative) Urine RBC 6-10 H (0-2) /HPF Urine WBC 0-5 (0-5) /HPF Ur Squamous Epith Cells 0-2 (0-2) /HPF Urine Bacteria None Seen (None Seen) Hyaline Casts 0-2 (0-2) /LPF COVID-19 (LAURA) (Negative) COVID-19 Clin Com Imaging Data Chest x-ray: Attestation: I personally reviewed and interpreted this imaging study as follows: Radiologist's impression: Patchy parenchymal airspace opacity in the right upper lobe and left lower lobe concerning for inflammatory infectious etiology. Consider short-term follow-up chest x-ray to ensure clearing. Discharge Plan Discharge Clinical Impression: Pneumonia, Cystitis Patient Disposition: Admitted As Inpatient Prescriptions: No Action ondansetron HCl [Zofran] 4 mg tablet 4 mg PO Q8H PRN (Reason: nausea and vomiting) Qty: 10 0RF famotidine [Pepcid] 20 mg tablet 20 mg PO BEDTIME Qty: 14 0RF alum-mag hydroxide-simeth [Maalox Advanced] 200-200-20 mg/5 mL suspension 5 ml PO 5XD PRN (Reason: dyspepsia) Qty: 30 0RF Rx Instructions: administer between meals and at bedtime dicyclomine 20 mg tablet 20 mg PO QID PRN (Reason: abdominal discomfort) Qty: 14 0RF cephalexin 500 mg capsule 500 mg PO Q6H 7 Days Qty: 28 0RF
--- OUTSIDE RECORDS SUMMARY | 2021-12-27 23:27 | XMS_ITS ---
:1935 Author Care Team Providers Name Role Phone BONNIE VELASCO MD Primary Care Provider [phone] Allergies Code Code System Name Reaction Severity Status Onset 7804 RxNorm Oxycodone Nausea ? Active ? Medications Name Status Start Date Stop Date ? ? amoxicillin 500 mg capsule Completed ? 01/22 amoxicillin 500 mg tablet Completed ? 2018 calcipotriene 0.005 % topical cream Completed ? 01/22/2019 captopril 25 mg tablet Active ? Not avail able cephalexin 500 mg capsule Completed ? 2018 clobetasol 0.05 % topical cream Completed ? 01/22/2019 cyclobenzaprine 5 mg tablet Completed ? 12/26 doxycycline hyclate 100 mg capsule Completed ? 01/22/2019 erythromycin 5 mg/gram (0.5 %) eye ointment Completed ? 01/22/2019 finasteride 5 mg tablet Completed ? 01/23/20 19 Fluad 2018-19 65yr up(PF)45 mcg(15 mcgx3)/0.5 mL Completed ? 01/22/2019 intramuscular syringe Fluzone High-Dose 2019-20 (PF) 180 mcg/0.5 mL Completed ? 01/22/2019 intramuscular syringe levofloxacin 500 mg tablet Completed ? 01/22 lidocaine 5 % topical patch Completed ? 12/26 naproxen 500 mg tablet Completed ? 9 prednisone 20 mg tablet Active ? Not avai lable Take 3 tabs po qd days 1-2 then take 2 tabs po qd days 3-6 triamcinolone acetonide 0.1 % topical cream Completed ? 01/22/2019 triamterene 37.5 mg-hydrochlorothiazide 25 mg capsule Active ? Not available verapamil ER (SR) 120 mg tablet,extended release Active ? Not available verapamil ER (SR) 180 mg tablet,extended release Active ? Not available Wixela Inhub 250 mcg-50 mcg/dose powder for inhalation Active ? Not available Problems None recorded. Procedures Date Name Performed by ? ? Procedure on Shoulder Information not av ailable Notes: X2 reversed ? Knee Surgery Information not avai lable Notes: L Knee replacement Results Lab Results None recorded. Past Encounters None recorded. Social History Tobacco Smoking Status Never Smoker Vaccine List None recorded. Plan of Care Reminders Provider Appointments None recorded. ? ? Lab None recorded. ? ? Referral None recorded. ? ? Procedures None recorded. ? ? Surgeries None recorded. ? ? Imaging None recorded. ? ? Vitals Blood Pressure 134/72 mm[Hg]
--- OUTSIDE RECORDS SUMMARY | 2021-12-27 23:27 | XMS_ITS | Continuity of Care Document ---
:1935 Author Organization [facility] Care Team Providers Name Role Phone [facility] Unavailable Unavailable Encounters Combined list of: 1) Encounters from [facility] of [facility] facilities going back up to the last 18 months. 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 Location Location Encounter Encounter Reason Attending ADM DC Stat us Disposition Source Details Type Number For Provider Date Date Visit Outpatient [id number] [facility]05 [id number] [place] [facility] Outpatient [id number] [facility]27 [id number] [place] [facility] [facility]
[2021-12-27] MEDS: 0.9 % Sodium Chloride 1,000 ML 999 ML IV (23:34)
[2021-12-27 23:40] LABS: Appearance Urine Clear; Color Urine Dark Yellow; Glucose Urine UA Negative (Negative); Leukocyte Esterase Urine Negative (Negative); Nitrite Urine Negative (Negative); Specific Gravity - Urine 1.025 (1.005-1.025); UMIC TRIGGER UACC YES; Urine Blood Small (1+) (Negative); Urine Ketones 15 mg/dL (Negative); Urine Protein 30 (1+) mg/dL (Neg-Trace)
[2021-12-27 23:45] LABS: Bacteria Urine None Seen (None Seen); Hyaline Casts Urine 0-2 /LPF (0-2); Squamous Epithelial Cell Urine 0-2 /HPF (0-2); WBC Urine 0-5 /HPF (0-5)
[2021-12-28] VITALS (12 sets, daily range): BP systolic 120–149; BP diastolic 59–79; PULSE 66–87; RESP 14–18; TEMP 36–37.4; O2SAT 95–97
[2021-12-28 00:48] LABS: Lactic Acid 1.3 mmol/L (0.5-2.0)
[2021-12-28 00:58] LABS: Troponin-I High Sensitivity 8.7 ng/L (<3.5-35.0)
[2021-12-28] MEDS: cefTRIAXone sodium 1 GM in 0.9 % Sodium Chloride 50 ML IV (01:25)
[2021-12-28] MEDS: Azithromycin 500 MG in 0.9 % Sodium Chloride 250 ML 125 MG IV ×2 (02:14→20:39)
--- NOTE | 2021-12-28 04:50 | P.HPHOSP_ITS ---
History of Present Illness Date of Service: 12/28/21 Chief Complaint: weakness This is an 86-year-old male with past medical history of hypertension, history of skin basal cell skin cancer, presents to the hospital with complaints of generalized weakness. He reports that about a week ago he presented to the ED after having splinters in his hand and ever since he has been feeling progressively significant weakness, as well as poor appetite. He denies any shortness of breath, no cough, no fever or chills, no abdominal pain nausea or vomiting, no diarrhea constipation, no urinary symptoms and no lower extremity edema. Patient reports urinary frequency and urgency as well as dysuria. On arrival to the ED patient hemodynamically stable with no significant abnormal vitals Labs are significant for WBC count of 7.6, sodium of 132 which is seems to be around his baseline, UA that is negative for nitrites, no leukocyte Estrace, COVID-19 negative Chest x-ray shows patchy parenchymal airspace opacity in the right upper lobe and left lower lobe concerning for inflammatory infectious etiology. Patient started on IV antibiotics and will be admitted for further management Review of Systems Review of Systems: Yes all other systems are reviewed and are negative [facility] Medical History Hypertension Skin cancer, basal cell Family History (Updated 12/28/21 @ 06:34 by Mikel Ball MD) Other No family history of coronary artery disease Surgical History H/O shoulder surgery Knee joint replacement status Social History (Updated 12/28/21 @ 06:34 by Mikel Ball MD) Alcohol intake: current Alcohol intake frequency: 0-2 drinks per day Alcohol type: beer Patient Tobacco Use Status: Never used Tobacco Use of substances other than those prescribed or required for medical reasons: No Advance Directives: No Advance Directives Information Provided: Yes Meds Allergies Allergy/AdvReac Type Severity Reaction Status Date / Time No Known Allergies Allergy Mild NONE Verified 12/27/21 15:43 Physical Exam Vital Signs and Narrative: Vital Signs: Last Vital Signs Temp 98.1 F 12/28/21 03:53 Pulse 66 12/28/21 03:53 Resp 16 12/28/21 03:53 BP 141/71 H 12/28/21 03:53 Pulse Ox 95 12/28/21 03:53 O2 Del Method 12/28/21 03:53 BMI result Body Mass Index 22.5 Const: General: cooperative and no acute distress Orientation/consc iousness: patient oriented x3 Eyes: General: appearance normal, both eyes and all related structures Resp: Effort & Inspection: normal respiratory effort Auscultation: clear to auscultation bilaterally Cardio: Rate: regular rate Rhythm: regular rhythm GI: Palpation (GI): Soft to palpation Auscultation: normal bowel sounds Skin: Other: Lesions noted on left hand, appear clean, no erythema warmth, edema or tenderness Neuro: General: patient oriented x3 Cognition (Neuro): normal cognition Extrem: General: Yes normal to inspection and Yes no pedal edema Results Labs CBC and Chem 7: 12/27/21 15:57 12/27/21 15:57 Labs: Laboratory Results - last 24 hr 12/27/21 12/27/21 12/27/21 15:57 15:57 15:57 MCV 91.1 MCH 31.2 MCHC 34.2 RDW 12.7 Plt Count 166 MPV 11.1 Immature Gran % (Auto) 0.5 H Neut % (Auto) 69.7 Lymph % (Auto) 10.6 L [place] % (Auto) 18.7 H Eos % (Auto) 0.1 Baso % (Auto) 0.4 Lymph # (Auto) 0.8 L [place] # (Auto) 1.4 H Eos # (Auto) 0.0 Baso # (Auto) 0.0 Abs Immat Gran (auto) 0.04 H Absolute Neuts (auto) 5.3 Absolute Nucleated RBC 0.000 Nucleated RBC % (auto) 0.0 Anion Gap 15 Estim Creat Clear Calc 44.1 Estimated GFR > 60 Random Glucose 145 H D Lactic Acid Calcium 8.4 D Total Bilirubin 0.6 Direct Bilirubin 0.4 AST 29 D ALT 18 Alkaline Phosphatase 77 D Troponin I High Sens Total Protein 5.8 L Albumin 3.4 L Lipase 19 Urine Color Urine Appearance Urine pH Ur Specific [place] Urine Protein Urine Glucose (UA) Urine Ketones Urine Blood Urine Nitrite Ur Leukocyte Esterase Urine RBC Urine WBC Ur Squamous Epith Cells Urine Bacteria Hyaline Casts COVID-19 (LAURA) Negative COVID-19 Clin Com See Note 12/27/21 12/28/21 12/28/21 23:33 00:28 00:28 MCV MCH MCHC RDW Plt Count MPV Immature Gran % (Auto) Neut % (Auto) Lymph % (Auto) [place] % (Auto) Eos % (Auto) Baso % (Auto) Lymph # (Auto) [place] # (Auto) Eos # (Auto) Baso # (Auto) Abs Immat Gran (auto) Absolute Neuts (auto) Absolute Nucleated RBC Nucleated RBC % (auto) Anion Gap Estim Creat Clear Calc Estimated GFR Random Glucose Lactic Acid 1.3 Calcium Total Bilirubin Direct Bilirubin AST ALT Alkaline Phosphatase Troponin I High Sens 8.7 Total Protein Albumin Lipase Urine Color Dark Yellow Urine Appearance Clear Urine pH 6.0 Ur Specific [place] 1.025 Urine Protein 30 (1+) H Urine Glucose (UA) Negative Urine Ketones 15 Urine Blood Small (1+) H Urine Nitrite Negative Ur Leukocyte Esterase Negative Urine RBC 6-10 H Urine WBC 0-5 Ur Squamous Epith Cells 0-2 Urine Bacteria None Seen Hyaline Casts 0-2 COVID-19 (LAURA) COVID-19 Clin Com Imaging Radiologist's Impressions: Impressions Chest X-Ray 12/27/21 23:38 IMPRESSION: Patchy parenchymal airspace opacity in the right upper lobe and left lower lobe concerning for inflammatory infectious etiology. Consider short-term follow-up chest x-ray to ensure clearing. Abdomen/Pelvis CT 12/28/21 01:25 IMPRESSION: 1. No hydronephrosis or obstructing calculus. 2. Colonic diverticulosis without diverticulitis. Assessment and Plan (1) Pneumonia: Qualifiers: Pneumonia type: due to unspecified organism Laterality: bilateral Lung location: unspecified part of lung Qualified Code(s): J18.9 - Pneumonia, unspecified organism Status: Acute (2) Weakness: Status: Acute (3) Failure to thrive in adult: Status: Acute Plan 86-year-old male with past medical history of hypertension presents to the hospital with complaints of generalized weakness as well as poor appetite found to have pneumonia # community-acquired pneumonia - although patient asymptomatic, there is evidence of pneumonia on chest x-ray - will obtain extensive viral panel - will treat with IV antibiotics given his generalized weakness and failure to thrive - follow cultures # generalized weakness - patient appears to have failure to thrive - at this time will obtain PT OT - possible rehab for discharge # hypertension - stable - antihypertensives once meds reviewed by pharmacy DVT prophylaxis: Raninox Pt will require a minimum 2 night hospital stay for IV antibiotics for community-acquired pneumonia S patient will do poorly at home given his status as living alone, and having significant weakness to the point that he is not eating or drinking Quality Stroke Does the patient have a stroke diagnosis?: No VTE Prior VTE?: No VTE Risk Level:: Medical - moderate - high VTE Device Contraindication: Treatment Not Indicated VTE Drug Contraindication: N/A - Med Ordered
[2021-12-28 06:26] LABS: Eosinophils Percent Auto 0.5 % (0-4); Imm Gran Abs Auto 0.02 X10*3/uL (0.00-0.03); Imm Gran Pct Auto 0.3 % (0.0-0.4); PLT CLUMP 1
[2021-12-28 06:28] LABS: Basophils Percent Auto 0.2 % (0-2); Hematocrit 42.8 % (42.0-52.0); Hemoglobin 14.6 g/dl (14.0-18.0); Lymphocytes Absolute Auto 0.8 X10*3/uL (1.2-4.9); Lymphocytes Percent Auto 13.1 % (20-40); MANUAL DIFF FLAG SCAN; Mean Corpuscular HGB Conc 34.1 g/dl (31.0-36.0); Mean Corpuscular Hemoglobin 30.9 pg (27.0-33.0); Mean Corpuscular Volume 90.7 fL (80.0-98.0); Mean Platelet Volume 11.2 fL (9.4-12.4); Monocytes Absolute Auto 1.2 X10*3/uL (0.1-1.2); Monocytes Percent Auto 20.9 % (2-11); Neutrophils Absolute Auto 3.7 x10*3/uL (2.0-8.3); Red Blood Count 4.72 X10*6/uL (4.60-5.80); Red Cell Distribution Width 12.5 % (11.0-16.0); SCAN SMEAR FLAG 1
[2021-12-28 06:36] LABS: Platelet Count 143 X10*3/uL (160-400); White Blood Count 5.7 X10*3/uL (4.8-10.8)
[2021-12-28 06:44] LABS: SLIDE REVIEW VERIFIED
[2021-12-28 06:52] LABS: Anion Gap 18 (12-20); Blood Urea Nitrogen 9 mg/dL (9-16); Calcium 7.8 mg/dL (8.4-10.2); Carbon Dioxide 21 mmol/L (22-29); Chloride 99 mmol/L (96-108); Estimated Glomerular Filt Rate > 60; Glucose Random 99 mg/dL (60-115); Potassium 3.7 mmol/L (3.3-5.1); Sodium 134 mmol/L (135-145)
[2021-12-28] MEDS: Enoxaparin Sodium 40 MG/0.4 ML SYRINGE SUBCUT (07:35)
--- NOTE | 2021-12-28 09:16 | PHA.MEDREC ---
Pharmacy Consult ? Medication Reconciliation Pharmacy has completed the medication reconciliation. Pt able to name all medications and doses; confirmed that he takes verapamil 300mg daily
--- NOTE | 2021-12-28 13:22 | MHC.CM.PN ---
IMM DELIVERED 10/4 CM MET WITH PT WHO LIVES ALONE IN A SINGLE FAMILY HOME. NO DME OR SERVICES. STILL DRIVES. WOULD PREFER TO RETURN HOME WITH NO SERVICES, SON ASSISTS NEEDED. HAS COPY OF HCP AT HOME, WILL ASK SON TO BRING COPY IN, DECLINES TO DO A NEW ONE. COVID VAX X3 WITH [employer]. PT HAD FLU SHOT FOR THE SEASON. PCP DR. VELASCO SON WILL TRANSPORT HOME
--- NOTE | 2021-12-28 14:05 | MHC.CLN ---
RE: CONSULT RECOMMEND ADDING ENSURE BID TO INCREASE PO INTAKE SUPP PROVIDES 700KCALS, 40G PROTEIN
--- NOTE | 2021-12-28 14:58 | HO.PM.IMPN ---
Subjective Subjective Date of Service: 12/28/21 Interval History: community-acquired pneumonia,generalized weakness Review of Systems sob seems improved denies any chest pain Physical Exam Vital Signs: Vital Signs: Last Vital Signs Temp 96.8 F 12/28/21 10:48 Pulse 84 12/28/21 10:48 Resp 18 12/28/21 10:48 BP 122/59 L 12/28/21 10:48 Pulse Ox 96 12/28/21 10:48 O2 Del Method 12/28/21 10:48 BMI result Body Mass Index 22.5 Unchanged from h&p. Objective Data Active Medications Acetaminophen (Acetaminophen 325 Mg Tablet) 650 mg PO Q6H PRN PRN Reason: Pain, Mild (Pain Scale 1-3) Docusate Sodium (Docusate Sodium 100 Mg Capsule) 100 mg PO DAILY PRN PRN Reason: Constipation Enoxaparin Sodium (Enoxaparin Sodium 40 Mg/0.4 Ml Syringe) 40 mg SUBCUT Q24H [facility] Last Admin: 12/28/21 07:35 Dose: 40 mg Documented By: CHRISTINE Erythromycin (Erythromycin Base 0.5% Oph Oin 1 Gm Tube) 1 cm EYE-RIGHT BID [facility] Azithromycin 500 mg/ Sodium (Chloride) 250 mls @ 125 mls/hr IV Q24H NASIR Ceftriaxone Sodium 1 gm/ (Sodium Chloride) 50 mls @ 100 mls/hr IV Q24H [facility] Ondansetron HCl (Ondansetron Hcl 4 Mg/2 Ml Vial) 4 mg IVPUSH Q8H PRN PRN Reason: Nausea and Vomiting Sodium Chloride (0.9 % Sodium Chloride Flush 3 Ml Syringe) 3 ml IVFLUSH QSHIFT [facility] Last Admin: 12/28/21 08:26 Dose: Not Given Documented By: CHRISTINE Non-Admin Reason: IV Running Labs CBC & Chem 7: 12/28/21 06:12 12/28/21 06:12 Labs: Laboratory Results - last 24 hr 12/27/21 12/27/21 12/27/21 15:57 15:57 15:57 MCV 91.1 MCH 31.2 MCHC 34.2 RDW 12.7 Plt Count 166 MPV 11.1 Immature Gran % (Auto) 0.5 H Neut % (Auto) 69.7 Lymph % (Auto) 10.6 L [place] % (Auto) 18.7 H Eos % (Auto) 0.1 Baso % (Auto) 0.4 Lymph # (Auto) 0.8 L [place] # (Auto) 1.4 H Eos # (Auto) 0.0 Baso # (Auto) 0.0 Abs Immat Gran (auto) 0.04 H Absolute Neuts (auto) 5.3 Absolute Nucleated RBC 0.000 Nucleated RBC % (auto) 0.0 Smear Tech's Comments Anion Gap 15 Estim Creat Clear Calc 44.1 Estimated GFR > 60 Random Glucose 145 H D Lactic Acid Calcium 8.4 D Total Bilirubin 0.6 Direct Bilirubin 0.4 AST 29 D ALT 18 Alkaline Phosphatase 77 D Troponin I High Sens Total Protein 5.8 L Albumin 3.4 L Lipase 19 Urine Color Urine Appearance Urine pH Ur Specific [place] Urine Protein Urine Glucose (UA) Urine Ketones Urine Blood Urine Nitrite Ur Leukocyte Esterase Urine RBC Urine WBC Ur Squamous Epith Cells Urine Bacteria Hyaline Casts COVID-19 (LAURA) Negative COVID-19 Clin Com See Note 12/27/21 12/28/21 12/28/21 23:33 00:28 00:28 MCV MCH MCHC RDW Plt Count MPV Immature Gran % (Auto) Neut % (Auto) Lymph % (Auto) [place] % (Auto) Eos % (Auto) Baso % (Auto) Lymph # (Auto) [place] # (Auto) Eos # (Auto) Baso # (Auto) Abs Immat Gran (auto) Absolute Neuts (auto) Absolute Nucleated RBC Nucleated RBC % (auto) Smear Tech's Comments Anion Gap Estim Creat Clear Calc Estimated GFR Random Glucose Lactic Acid 1.3 Calcium Total Bilirubin Direct Bilirubin AST ALT Alkaline Phosphatase Troponin I High Sens 8.7 Total Protein Albumin Lipase Urine Color Dark Yellow Urine Appearance Clear Urine pH 6.0 Ur Specific [place] 1.025 Urine Protein 30 (1+) H Urine Glucose (UA) Negative Urine Ketones 15 Urine Blood Small (1+) H Urine Nitrite Negative Ur Leukocyte Esterase Negative Urine RBC 6-10 H Urine WBC 0-5 Ur Squamous Epith Cells 0-2 Urine Bacteria None Seen Hyaline Casts 0-2 COVID-19 (LAURA) COVID-19 Clin Com 12/28/21 12/28/21 06:12 06:12 MCV 90.7 MCH 30.9 MCHC 34.1 RDW 12.5 Plt Count 143 L MPV 11.2 Immature Gran % (Auto) 0.3 Neut % (Auto) 65.0 Lymph % (Auto) 13.1 L [place] % (Auto) 20.9 H Eos % (Auto) 0.5 Baso % (Auto) 0.2 Lymph # (Auto) 0.8 L [place] # (Auto) 1.2 Eos # (Auto) 0.0 Baso # (Auto) 0.0 Abs Immat Gran (auto) 0.02 Absolute Neuts (auto) 3.7 Absolute Nucleated RBC 0.000 Nucleated RBC % (auto) 0.0 Smear Tech's Comments VERIFIED Anion Gap 18 Estim Creat Clear Calc 68.0 Estimated GFR > 60 Random Glucose 99 Lactic Acid Calcium 7.8 L D Total Bilirubin Direct Bilirubin AST ALT Alkaline Phosphatase Troponin I High Sens Total Protein Albumin Lipase Urine Color Urine Appearance Urine pH Ur Specific [place] Urine Protein Urine Glucose (UA) Urine Ketones Urine Blood Urine Nitrite Ur Leukocyte Esterase Urine RBC Urine WBC Ur Squamous Epith Cells Urine Bacteria Hyaline Casts COVID-19 (LAURA) COVID-19 Clin Com Assessment and Plan (1) Pneumonia: Status: Acute (2) Weakness: Status: Acute Plan 86-year-old male with past medical history of hypertension presents to the hospital with complaints of generalized weakness as well as poor appetite found to have pneumonia. This patient is seen and examined earlier this morning by the hospital service, seen and examined again.. Physical exam and assessment and plan coordinated in H&P note. Continue antibiotic for pneumonia, PT OT inpatient needs: please see H&P note. Quality Stroke Does the patient have a stroke diagnosis?: No VTE Prior VTE?: No VTE Risk Level:: Medical - moderate - high VTE Device Contraindication: Treatment Not Indicated VTE Drug Contraindication: N/A - Med Ordered
[2021-12-28 15:57] LABS: Adenovirus PCR Not Detected (Not Detect.); Bordetella parapertussis PCR Not Detected (Not Detect.); Bordetella pertussis PCR Not Detected (Not Detect.); Chlamydia pneumoniae PCR Not Detected (Not Detect.); Coronavirus 229E PCR Not Detected (Not Detect.); Coronavirus HKU1 PCR Not Detected (Not Detect.); Coronavirus NL63 PCR Not Detected (Not Detect.); Coronavirus OC43 PCR Not Detected (Not Detect.); Human metapneumovirus PCR Not Detected (Not Detect.); Influenza A PCR Not Detected (Not Detect.); Influenza B PCR Not Detected (Not Detect.); Mycoplasma pneumoniae PCR Not Detected (Not Detect.); Parainfluenza 1 PCR Not Detected (Not Detect.); Parainfluenza 2 PCR Not Detected (Not Detect.); Parainfluenza 3 PCR Not Detected (Not Detect.); Parainfluenza 4 PCR Not Detected (Not Detect.); RSV PCR Not Detected (Not Detect.); Rhino/Enterovirus PCR Not Detected (Not Detect.); SARS-CoV-2 PCR Not Detected (Not Detect.)
[2021-12-28] MEDS: 0.9 % Sodium Chloride Flush 3 ML SYRINGE IVFLUSH ×2 (16:45→20:39)
[2021-12-28] MEDS: Erythromycin Base 0.5% Oph Oin 1 GM TUBE 1 CM EYE-RIGHT (20:39)
[2021-12-29] MEDS: cefTRIAXone sodium 1 GM in 0.9 % Sodium Chloride 50 ML IV (02:11)
[2021-12-29 03:29] VITALS: BP 139/77; PULSE 68; RESP 17; TEMP 37.2; O2SAT 96
[2021-12-29] MEDS: Enoxaparin Sodium 40 MG/0.4 ML SYRINGE SUBCUT (06:40)
[2021-12-29 07:56] VITALS: BP 124/65; PULSE 66; RESP 18; TEMP 36.7; O2SAT 96
[2021-12-29] MEDS: VerapamiL HCL SR 120 MG TABLET.ER PO (08:22)
[2021-12-29] MEDS: captopriL 25 MG TABLET PO (08:23)
[2021-12-29] MEDS: Erythromycin Base 0.5% Oph Oin 1 GM TUBE 1 CM EYE-RIGHT (08:23)
[2021-12-29] MEDS: 0.9 % Sodium Chloride Flush 3 ML SYRINGE IVFLUSH (08:25)
[2021-12-29 11:26] VITALS: BP 103/57; PULSE 66; RESP 18; TEMP 37.2; O2SAT 93
--- NOTE | 2021-12-29 13:05 | W.MHC.F2F ---
Service Date Service Date: 12/29/21 Encounter Date of encounter: 12/29/21 Encounter: Pneumonia and generalized weakness Reasons for Services Signs and symptoms assessed: Monitor for respiratory symptoms. Reason for longterm: medication management, medication treatment and teach disease management MD Overseeing Care: Yakov Sandra Homebound: Leaving the home is medically contraindicated at this time without the asist of a device and/or another person due th the listed conditions above and below. Reason homebound: weakness related to hospital stay Homebound supporting statement: Patient is generalized weak post hospitalization stay and has multiple comorbidities and pneumonia-need help to go to appointments. Certification: Based on the above findings, I certify that this patient is confined to the home and needs intermittent longterm care, physical therapy and/or speech therapy, or continues to need occupational therapy. The patient is under my care, and I have initiated the establishment of the plan of care. The patient will be followed by a physician who will periodically review the plan of care.
--- NOTE | 2021-12-29 13:09 | PM.DS ---
DS: Providers Provider Date of Service: 12/29/21 Date of admission: 12/28/21 04:49 Primary care physician: Yakov Sandra MD Attending physician on discharge: Chito Miranda Discharging clinician: Chito Miranda DS: Diagnosis Discharge Diagnosis (1) Pneumonia: Status: Acute (2) Weakness: Status: Acute (3) Failure to thrive in adult: Status: Acute (4) Cystitis: Status: Acute (5) Hematuria: Status: Acute DS: Summary Hospital Course Hospital Course: ?86-year-old male with past medical history of hypertension, history of skin basal cell skin cancer, presents to the hospital with complaints of generalized weakness.? He reports that about a week ago he presented to the ED after having splinters in his hand and ever since he has been feeling progressively significant weakness, as well as poor appetite.? He denies any shortness of breath, no cough, no fever or chills, no abdominal pain nausea or vomiting, no diarrhea constipation, no urinary symptoms and no lower extremity edema.? Patient reports urinary frequency and urgency as well as dysuria.? On arrival to the ED patient hemodynamically stable with no significant abnormal vitals Labs are significant for WBC count of 7.6, sodium of 132 which is seems to be around his baseline, UA that is negative for nitrites, no leukocyte Estrace, COVID-19 negative Chest x-ray shows patchy parenchymal airspace opacity in the right upper lobe and left lower lobe concerning for inflammatory infectious etiology. Patient started on IV antibiotics and will be admitted for further management. Hospital course: Patient admitted for pneumonia and generalized weakness as well as poor oral intake: Started on IV antibiotics seems to be improving significantly, oral intake improving, Seen by physiotherapy -recommended no home PT. blood cultures neg@24hours. Patient will go home with VNA and p.o. antibiotics. Urinalysis was abnormal-microscopic hematuria,denies any urinary symptoms , repeat UA outpatient with PCP and further management add workup as per PCP. Please repeat chest imaging in 3-4 weeks to see resolution of pneumonia outpatient. plan: Urinalysis was abnormal-microscopic hematuria, repeat UA outpatient with PCP and further management add workup as per PCP. Please repeat chest imaging in 3-4 weeks to see resolution of pneumonia outpatient. Complete course of antibiotics. Above management discussed with the patient in detail length he understand and in agreement with the above plan, time spent 50 minutes and 50% time spent on counseling. Significant findings: As above. Procedures performed: None. Treatment and response: As above. Complications: None. Time Spent with Patient Time attestation: Total time spent providing and/or coordinating discharge services: Discharge coordination time: Greater than 30 minutes Quality: Safe Use of Opioids Does Pt have an Active Cancer Diagnosis on the Problem List?: No Quality: Stroke Does the patient have a stroke diagnosis?: No Physical Exam Vital Signs: Vital Signs: Last Vital Signs Temp 98.9 F 12/29/21 11:26 Pulse 66 12/29/21 11:26 Resp 18 12/29/21 11:26 BP 103/57 L 12/29/21 11:26 Pulse Ox 93 12/29/21 11:26 O2 Del Method 12/29/21 11:26 BMI result Body Mass Index 22.5 Appearance: Alert.? Oriented X3.? not in distress.? Eyes: Pupils equal, round and reactive to light.? Sclera nonicteric.? ENT: Pharynx normal.? Moist mucous membranes. cvs: rrr, [id number] . res: clear to auscultation ,no rhonchii or wheezing abd: no rebound or guarding ,nt, bs present. ext pulses present , no cyanosis . neuro: axo3 , nonfocal. DS: Data Data Completed and Pending Labs on day of discharge: Laboratory Results - last 24 hr 12/28/21 14:40 Respiratory Panel Rodriguez See Note Adenovirus (Rapid PCR) Not Detected B.pert (TEM-PCR) Not Detected B.parapertussis DNA PCR Not Detected C. pneumoniae DNA (PCR) Not Detected Coronavirus OC43 (PCR) Not Detected Coronavirus HKU1 (PCR) Not Detected Coronavirus 229E (PCR) Not Detected Coronavirus NL63 (PCR) Not Detected Human Metapneumovir PCR Not Detected Influenza A (RT-PCR) Not Detected Influenza B (RT-PCR) Not Detected M. pneumoniae (PCR) Not Detected Parainfluenza 1 (PCR) Not Detected Parainfluenza 2 (PCR) Not Detected Parainfluenza 3 (PCR) Not Detected Parainfluenza 4 (PCR) Not Detected RSV (PCR) Not Detected Entero/Rhino (PCR) Not Detected SARS-CoV-2 RNA (RT-PCR) Not Detected Preliminary micro results at discharge 12/28/21 00:28 Blood Culture - Preliminary Blood - Venous No growth after 24 hours. 12/28/21 00:28 Blood Culture - Preliminary Blood - Venous No growth after 24 hours. Additional Comments Additional comments: CT/CT abdomen pelvis wo IV con IMPRESSION: 1.? No hydronephrosis or obstructing calculus. 2.? Colonic diverticulosis without diverticulitis. ?Chest X-Ray? 12/27/21 23:38 IMPRESSION: Patchy parenchymal airspace opacity in the right upper lobe and left lower lobe concerning for inflammatory infectious etiology. Consider short-term follow-up chest x-ray to ensure clearing. ? Discharge Plan Discharge Anticipated Discharge Date/Time: 12/29/21 12:56 Patient Disposition: Home Health Service Discharge Diagnosis: Pneumonia, generalized weak. Referrals: Yakov Sandra MD [Primary Care Provider] - 1 Week Discharge Medications: New cefuroxime axetil 500 mg tablet 500 mg PO BID Qty: 12 0RF azithromycin 500 mg tablet 500 mg PO DAILY 5 Days Qty: 5 0RF Continued verapamil 120 mg tablet extended release 1 tab PO DAILY verapamil 180 mg tablet extended release 1 tab PO DAILY captopril 25 mg tablet 1 tab PO DAILY Dupixent Pen 300 mg/2 mL pen injector 300 mg subcut Q14D erythromycin 5 mg/gram (0.5 %) ointment 1 appl ophthalmic-Right BID PRN (Reason: Discomfort) Discharge Orders: Discharge Order (Routine); Ordered 12/29/21 Ordered By: Chito Miranda Diet: Advance to usual diet Activity on Discharge: As tolerated Stand Alone Forms: Patient Portal Discharge page Care Plan Goals: Patient admitted for pneumonia and generalized weakness as well as poor oral intake: Started on IV antibiotics seems to be improving significantly, oral intake improving, Seen by physiotherapy -recommended no home PT. Patient will go home with VNA and p.o. antibiotics. Urinalysis was abnormal-microscopic hematuria, repeat UA outpatient with PCP and further management add workup as per PCP. Please repeat chest imaging in 3-4 weeks to see resolution of pneumonia outpatient. Above management discussed the patient detail length he understand in agreement with the plan. Health Concerns: As above. Plan of Treatment: Urinalysis was abnormal-microscopic hematuria, repeat UA outpatient with PCP and further management add workup as per PCP. Please repeat chest imaging in 3-4 weeks to see resolution of pneumonia outpatient. Complete course of antibiotics. Assessment: As above. Patient Instructions: Hematuria (GEN)
[2021-12-29] MEDS: Azithromycin 500 MG TABLET PO (13:13)
--- NOTE | 2021-12-29 13:56 | MHC.CM.PN ---
PT MEDICALLY CLEARED FOR DC TODAY, WILL GO HOME WITH NEW [facility] FOR NURSING. RN/UNIT AWARE [facility] SHUTTLE WILL TRANSPORT HOME AT 2PM, SON UNABLE TO TRANSPORT AND AWARE OF PLAN.
== END 2021-12-29 14:00 | disposition home health service (06) | DRG 195 ==
LOC: HO.ED 12-28 00:59 → HO.EDOVER 12-28 04:52 → HO.S3 12-28 07:26
PROVIDERS: Admitting Provider Internal Medicine; Emergency Provider Emergency Medicine; PCP Internal Medicine; Visit Provider Internal Medicine
DX: J18.9 Pneumonia, unspecified organism (principal); R62.7 Adult failure to thrive; I10 Essential (primary) hypertension; N30.91 Cystitis, unspecified with hematuria; Z68.22 Body mass index [BMI] 22.0-22.9, adult; Z20.822 Contact with and (suspected) exposure to COVID-19; Z79.899 Other long term (current) drug therapy
CPT/HCPCS: 36415; 71045; 74176; 80048; 80076; 81001; 83605; 83690; 84484; 85025; 87040; 87633; 87635; 97161; 99285; J0456; J0696; J1650

== ENCOUNTER 2022-01-04 12:47 | Outpatient (REF) | payer MEDICARE, BC, SELFPAY ==
--- NOTE | ~2022-01-04 | XR_ITS ---
EXAMINATION: XR CHEST CLINICAL INFORMATION: Follow-up right lower lobe pneumonia COMPARISON: Chest radiograph from 12/27/2021 TECHNIQUE: 2 views of the chest were obtained. FINDINGS: Improved aeration of the left lower lung field. Mild bibasilar atelectasis. No pneumothorax. Trachea is midline. Cardiomediastinal silhouette is enlarged. Aorta demonstrates atherosclerotic calcifications. No large pleural effusion. 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 Soft tissues are unremarkable. XR/XR chest 2V IMPRESSION: 1. Improved aeration of the left lower lung field. 2. Mild bibasilar atelectasis.
== END 2022-01-04 12:48 | disposition home or self-care (01) ==
LOC: HO.HMGCX 12:47
PROVIDERS: PCP Internal Medicine; Visit Provider Internal Medicine
DX: J18.9 Pneumonia, unspecified organism (principal)
CPT/HCPCS: 71046

== ENCOUNTER 2023-03-13 12:37 | Observation (INO) | payer MEDICARE, BC, SELFPAY ==
--- NOTE | ~2023-03-13 | CT_ITS ---
EXAMINATION: CT HEAD WITHOUT CONTRAST CLINICAL INFORMATION: Headache. COMPARISON: 11/16/2018. TECHNIQUE: Contiguous axial imaging was performed from the skull base to vertex without intravenous administration of contrast. This CT examination was performed using dose optimization techniques as appropriate, variously including the following: *Automated exposure control *Adjustment of mA and/or kV according to patient size (this includes techniques or standardized protocols for targeted exams where dose is matched to indication/reason for exam; i.e. extremities or head) *Use of iterative reconstruction technique DLP: 632 mGy-cm FINDINGS: There is cerebral volume loss with prominence of the lateral and the third ventricles. The cortical sulci are widened appropriately. The fourth ventricle and basal cisterns are normally outlined. There is mild bilateral periventricular and central white matter diminished attenuation. There is no acute territorial defect, hemorrhage or midline shift. The extra-axial spaces are unremarkable. Calvarium: Intact. Maxillofacial sinuses and mastoids: There is sphenoid and ethmoid sinus mucosal thickening. The remaining visualized maxillofacial sinuses and mastoids are clear. CT/CT head/brain wo IV con IMPRESSION: No acute intracranial pathology.
--- NOTE | ~2023-03-13 | CT_ITS ---
EXAMINATION: CT ABDOMEN AND PELVIS WITHOUT CONTRAST CLINICAL INFORMATION: Abdominal pain. Nausea and vomiting. COMPARISON: 12/28/2021 TECHNIQUE: Multidetector volumetric imaging was performed from the superior aspect of the liver through the pubic symphysis. Sagittal and coronal reformatted images were obtained on the technologist's workstation. This CT examination was performed using dose optimization techniques as appropriate, variously including the following: *Automated exposure control *Adjustment of mA and/or kV according to patient size (this includes techniques or standardized protocols for targeted exams where dose is matched to indication/reason for exam; i.e. extremities or head) *Use of iterative reconstruction technique DLP: 997 mGy-cm FINDINGS: LUNG BASES: Small bilateral pleural effusions. Cardiac enlargement. LIVER, GALLBLADDER, AND BILIARY TREE: The noncontrast liver is normal in size and contour. No suspicious hepatic lesion or biliary ductal dilatation is present. The gallbladder is unremarkable with no evidence of radiopaque gallstones, gallbladder wall thickening, or obvious pericholecystic inflammatory changes. PANCREAS: Unremarkable. SPLEEN: Unremarkable. ADRENAL GLANDS: Unremarkable. KIDNEYS AND URETERS: The kidneys are symmetric in size. 4.4 x 4.1 cyst upper pole left kidney. No further imaging follow-up is needed. No hydronephrosis. Bilateral perinephric stranding. BLADDER: Unremarkable. GASTROINTESTINAL TRACT: Diverticular disease of the colon. No small bowel obstruction. Appendix is within normal limits. ABDOMINAL WALL: No significant hernia is appreciated. LYMPH NODES: No bulky lymphadenopathy. VASCULAR: Normal caliber abdominal aorta. PELVIC VISCERA: Mild enlargement of the prostate gland. Small free fluid in pelvis. OSSEOUS STRUCTURES: Irregular sclerotic endplate changes L1 and L3. L5-S1 spondylolysis and spondylolisthesis. CT/CT abdomen pelvis wo IV con IMPRESSION: Small bilateral pleural effusions. Small free fluid in the pelvis and right lower quadrant. Bilateral perinephric fluid/stranding.
--- NOTE | ~2023-03-13 | XR_ITS ---
EXAMINATION: XR CHEST CLINICAL INFORMATION: Cough. COMPARISON: 01/04/2022 TECHNIQUE: Frontal view of the chest was obtained. FINDINGS: The lung volumes are low. The cardiomediastinal silhouette is within normal limits. There is minimal lower lung field increased markings. There is no definitive focal consolidation or pleural effusion. Bilateral shoulder prostheses are noted. XR/XR chest 1V IMPRESSION: Low lung volumes limits evaluation. Mild lower lung field increased markings suspected to be chronic and/or technical due to low lung volumes. There is no focal lung consolidation or evidence for significant pleural effusion.
[2023-03-13 13:19] VITALS: BP 97/45; PULSE 69; RESP 20; TEMP 37.7; O2SAT 96; BMI 22.7
--- NOTE | 2023-03-13 13:19 | ED_ITS ---
HPI - Abdominal Pain General Chief Complaint: Nausea/Vomiting/Diarrhea Stated Complaint: vomiting x 4 days Time Seen by Provider: 03/13/23 21:06 Source: patient and family Mode of arrival: ambulatory Limitations: no limitations History of Present Illness HPI narrative: 87 yo male with PMH of FTT, pneumonia, UTI, COVID vaccines x 4 here with c/o n/v/d weakness, cough, headaches and diarrhea since Monday - family had COVID recently. He has been weak and unable to eat or drink much since he has been ill. He also has a dry cough. MD elicited complaint: abdominal pain (n/v/d cough fevers chills) Pertinent past history: none Onset (ago): day(s) (4) Pain Consistency: constant Location: diffuse Severity: mild Quality: aching Radiation: none Migration to: no migration Exacerbating factors: eating Relieving factors: nothing Context: sick contacts Associated symptoms: nausea, vomiting, diarrhea, fever and chills Related Data Home Medications Medication Instructions Recorded Confirmed captopril 25 mg tablet 1 tab PO DAILY 12/28/21 12/28/21 dupilumab 300 mg/2 mL subcutaneous 300 mg subcut Q14D 12/28/21 12/28/21 pen injector (Dupixent) verapamil 120 mg tablet,extended 1 tab PO DAILY 12/28/21 12/28/21 release Allergies Allergy/AdvReac Type Severity Reaction Status Date / Time No Known Allergies Allergy Mild NONE Verified 12/27/21 15:43 Review of Systems Review of Systems Constitutional : No Weight loss, pos Fever, pos Chills ENT/Mouth : No sore throat, No Rhinorrhea Eyes: No Swelling, No Redness Cardiovascular : No Chest Pain, No SOB, NoEdema Respiratory : pos Cough, No Sputum, No Wheezing Gastrointestinal : Positive Nausea, Positive Vomiting, positive Diarrhea, positive abdominal Pain, No Hematochezia, No Melena Genitourinary : No Dysuria, No Urinary Frequency, No Hematuria, No Urgency Musculoskeletal : No joint pain, No Myalgias, No Joint Swelling Skin : No Skin Lesions, No rash Neuro : pos Weakness, No Numbness, No Dizziness, No Headache Psych : No Anxiety/Panic, No Depression All other systems reviewed and are negative. [facility] Past Medical History Attestation statement: The following information was validated with the patient. Source: old records reviewed Medical History Skin cancer, basal cell Hypertension Surgical History H/O shoulder surgery Knee joint replacement status Family History Family History (Updated 12/28/21 @ 06:34 by Mikel Ball MD) Other No family history of coronary artery disease Social History Social History Household Members: None Housing: House Do you presently have visiting nurse or other home services: No Alcohol intake: current Alcohol intake frequency: 0-2 drinks per day Alcohol type: beer Comment: refused alarm Patient Tobacco Use Status: Never used Tobacco Smoked in Last 30 Days: No Use of substances other than those prescribed or required for medical reasons: No Advance Directives: No Advance Directives Information Provided: No service: Yes Current occupational status: retired Physical Exam ED Vital Signs: Vital Signs - 24 hr 03/13/23 13:19 03/13/23 21:32 Temperature 100 F Pulse Rate 69 Respiratory Rate 20 Blood Pressure 97/45 L 126/54 L Pulse Oximetry 96 BMI result Body Mass Index 22.7 Appearance: Alert. Oriented X3. No acute distress. Eyes: Pupils equal, round and reactive to light. ENT: Pharynx mildly dry MM Neck: Normal inspection. Neck supple. CVS: Normal heart rate and rhythm. Pulses normal. Respiratory: No respiratory distress. Breath sounds normal. Abdomen: Soft and nontender. Skin: Skin warm and dry. pale skin color. Normal skin turgor. Extremities: No lower extremity edema. No calf ttp Neuro: Oriented X 3. No motor deficit. No sensory deficit. Course Course Course Narrative: This is an RME: Additional HPI, ROS, PE not included below will be deferred to primary provider. This is a 16-xoav-gel-male, with a hx HTN, basal cell carcinoma and melanoma, presenting to the ER with a complaint of headache, vomiting, nausea x 4 days. Plan: Labs, EKG, CT head, CT abd Medical Decision Making Medical Decision Making MDM Narrative: 87 yo male with PMH of FTT, pneumonia, UTI, COVID vaccines x 4 here here with c/o fatigue, chills, n/v/d and abdominal pain with dry cough. His family just had COVID. He is not able to eat or drink much. At this time labs, CT scan of abdomen / pelvis, viral panel suspect this is COVID at this time given array of symptoms - gentle fluid hydration and IV zofran. Will obtain CXR he has no CP/SOB to suggest VTE at this time and has no hypoxia. If unable to tolerate PO will admit for intractable n/v in setting of COVID. Differential Diagnosis Differential Diagnoses: The differential diagnosis associated with the presentation includes dehydration, FTT, COVID Admission/Observation Consideration of admission/observation: Escalation of care including admission/observation considered still not feeling well will admit for further management Consult Healthcare Provider Management of the patient was discussed with: Hospitalist (will admit) Lab Data MDM Lab Attestation statement: I reviewed the patient's lab results. 03/13/23 13:49 03/13/23 14:28 Labs: Lab Results 03/13/23 03/13/23 Range/Units 13:49 14:28 WBC 7.5 (4.8-10.8) X10*3/uL RBC 5.47 (4.60-5.80) X10*6/uL Hgb 17.1 (14.0-18.0) g/dl Hct 50.8 (42.0-52.0) % MCV 92.9 (80.0-98.0) fL MCH 31.3 (27.0-33.0) pg MCHC 33.7 (31.0-36.0) g/dl RDW 12.9 (11.0-16.0) % Plt Count 110 L (160-400) X10*3/uL MPV 12.7 H (9.4-12.4) fL Immature Gran % (Auto) 0.4 (0.0-0.4) % Neut % (Auto) 76.1 H (45-73) % Lymph % (Auto) 14.2 L (20-40) % [place] % (Auto) 9.2 (2-11) % Eos % (Auto) 0.0 (0-4) % Baso % (Auto) 0.1 (0-2) % Lymph # (Auto) 1.1 L (1.2-4.9) X10*3/uL [place] # (Auto) 0.7 (0.1-1.2) X10*3/uL Eos # (Auto) 0.0 (0.0-0.4) X10*3/uL Baso # (Auto) 0.0 (0.0-0.2) X10*3/uL Abs Immat Gran (auto) 0.03 (0.00-0.03) X10*3/uL Absolute Neuts (auto) 5.7 (2.0-8.3) x10*3/uL Absolute Nucleated RBC 0.000 (0.0-0.012) X10*3/uL Nucleated RBC % (auto) 0.0 (0.0-0.2) /100WBC Sodium 132 L (135-145) mmol/L Potassium 3.8 (3.3-5.1) mmol/L Chloride 100 (96-108) mmol/L Carbon Dioxide 20 L (22-29) mmol/L Anion Gap 16 (12-20) BUN 10 (9-16) mg/dL Creatinine 1.12 (0.5-1.4) mg/dL Estim Creat Clear Calc 43.2 Estimated GFR > 60 Random Glucose 87 (60-115) mg/dL Calcium 8.2 L (8.4-10.2) mg/dL Magnesium 2.0 (1.6-2.6) mg/dL Total Bilirubin 0.6 (0.0-1.0) mg/dL Direct Bilirubin 0.2 (0.0-0.5) mg/dL AST 31 (5-37) U/L ALT 14 (0-40) U/L Alkaline Phosphatase 71 (39-117) U/L Total Protein 6.6 (6.5-8.0) g/dL Albumin 3.7 (3.5-5.0) g/dL Lipase 192 H (8-78) U/L Influenza Type A (PCR) NEGATIVE (Negative) Influenza Type B (PCR) NEGATIVE (Negative) RSV RNA Qual (PCR) NEGATIVE (Negative) SARS-CoV-2 RNA (RT-PCR) POSITIVE A (Negative) Independent Interpretation I performed an independent interpretation of an: EKG, Plain X-Ray and CT Scan (no ICH) Interpretation: Rate: 55 Rhythm: sinus bradycardia [place]: left Normal P waves. Normal CORRIE. Normal QRS complex. ST T wave : no PATRICIA, normal qTC: normal prior studies: no acute ischemia The study has been interpreted contemporaneously by me. . Radiology Impression Discussion of test interpretation with radiology: I have reviewed the radiologist's reading. Independent Historian Clinical information obtained from an independent historian. History obtained from or confirmed by: Other External Record Review External record reviewed: Office record Medications Administered Generic Name Dose Route Start Last Admin Trade Name Freq PRN Reason Stop Dose Admin Sodium Chloride 1,000 mls @ 75 mls/hr 03/13/23 21:15 03/13/23 22:01 Ns IVCONT 75 mls/hr .[id number] NASIR Administration Discontinued Medications Generic Name Dose Route Start Last Admin Trade Name Freq PRN Reason Stop Dose Admin Acetaminophen 650 mg 03/13/23 21:22 03/13/23 22:02 Acetaminophen Oral Liquid 650 Mg/20.3 Ml Solution PO 03/13/23 21:23 650 mg ONCE ONE Administration Ondansetron HCl 4 mg 03/13/23 21:07 03/13/23 22:02 Ondansetron Hcl 4 Mg/2 Ml Vial IVPUSH 03/13/23 21:08 4 mg ONCE ONE Administration Discharge Plan Discharge Clinical Impression: Weakness, COVID-19, Nausea & vomiting Patient Disposition: Admitted As Inpatient
[2023-03-13 13:54] LABS: MANUAL DIFF FLAG NO
[2023-03-13 13:56] LABS: Basophils Percent Auto 0.1 % (0-2); Hematocrit 50.8 % (42.0-52.0); Hemoglobin 17.1 g/dl (14.0-18.0); Imm Gran Abs Auto 0.03 X10*3/uL (0.00-0.03); Imm Gran Pct Auto 0.4 % (0.0-0.4); Lymphocytes Absolute Auto 1.1 X10*3/uL (1.2-4.9); Lymphocytes Percent Auto 14.2 % (20-40); Mean Corpuscular HGB Conc 33.7 g/dl (31.0-36.0); Mean Corpuscular Hemoglobin 31.3 pg (27.0-33.0); Mean Corpuscular Volume 92.9 fL (80.0-98.0); Mean Platelet Volume 12.7 fL (9.4-12.4); Monocytes Absolute Auto 0.7 X10*3/uL (0.1-1.2); Monocytes Percent Auto 9.2 % (2-11); Neutrophils Absolute Auto 5.7 x10*3/uL (2.0-8.3); Neutrophils Percent Auto 76.1 % (45-73); Platelet Count 110 X10*3/uL (160-400); Red Blood Count 5.47 X10*6/uL (4.60-5.80); Red Cell Distribution Width 12.9 % (11.0-16.0); White Blood Count 7.5 X10*3/uL (4.8-10.8)
[2023-03-13 14:40] LABS: Influenza A PCR NEGATIVE (Negative); Influenza B PCR NEGATIVE (Negative); Resp Syncy Virus RNA Qual PCR NEGATIVE (Negative); SARS COV2 PCR INHOUSE POSITIVE (Negative)
[2023-03-13 15:02] LABS: Alanine Aminotransferase 14 U/L (0-40); Albumin Level 3.7 g/dL (3.5-5.0); Alkaline Phosphatase 71 U/L (39-117); Anion Gap 16 (12-20); Aspartate Amino Transferase 31 U/L (5-37); Bilirubin Direct 0.2 mg/dL (0.0-0.5); Bilirubin Total 0.6 mg/dL (0.0-1.0); Blood Urea Nitrogen 10 mg/dL (9-16); Calcium 8.2 mg/dL (8.4-10.2); Carbon Dioxide 20 mmol/L (22-29); Chloride 100 mmol/L (96-108); Creatinine Clr Calc Pharmacy 43.2; Estimated Glomerular Filt Rate > 60; Glucose Random 87 mg/dL (60-115); Lipase 192 U/L (8-78); Potassium 3.8 mmol/L (3.3-5.1); Sodium 132 mmol/L (135-145); Total Protein 6.6 g/dL (6.5-8.0)
--- NOTE | 2023-03-13 21:29 | ECG_ITS ---
Test Reason : N/V Blood Pressure : / mmHG Vent. Rate : 055 BPM Atrial Rate : 055 BPM P-R Int : 184 ms QRS Dur : 094 ms QT Int : 468 ms P-R-T Axes : 018 -54 016 degrees QTc Int : 447 ms Sinus bradycardia Left anterior fascicular block Septal infarct , age undetermined Cannot rule out Inferior infarct (masked by fascicular block?) , age undetermined Abnormal ECG When compared with ECG of 27-FEB-2013 14:04, Septal infarct is now Present No significant change was found Referred By: Vaishnavi Cruz Electronically Signed By:CHELSEA RANDHAWA MD
[2023-03-13 21:32] VITALS: BP 126/54
[2023-03-13] MEDS: 0.9 % Sodium Chloride 1,000 ML 75 ML IVCONT (22:01)
[2023-03-13] MEDS: ondansetron HCL 4 MG/2 ML VIAL IVPUSH (22:02)
[2023-03-13] MEDS: Acetaminophen Oral Liquid 650 MG/20.3 ML SOLUTION PO (22:02)
--- NOTE | 2023-03-13 22:11 | PC.NURSE ---
pt a&ox4, respirations even and unlabored. pt from home reporting 4 days of nausea, vomiting, diarrhea, shortness of breath and overall not feeling well . pt reports ot being sure of having covid but [place] [facility] [place]. pt lung sounds clear bilaterally. pt sating 96% on room air. iv access established.
--- NOTE | 2023-03-13 22:32 | PHA.MEDREC ---
Pharmacy Consult ? Medication Reconciliation Pharmacy has completed the medication reconciliation. Patient reported medications. Patient did not take medications this morning. Demetria Clrake, EddieD
[2023-03-13 22:38] VITALS: BP 102/51; PULSE 53; RESP 15; TEMP 36.9; O2SAT 92
--- NOTE | 2023-03-13 22:39 | P.HPHOSP_ITS ---
History of Present Illness Date of Service: 03/13/23 Chief Complaint: Vomiting and diarrhea This is a 87-year-old male with pertinent history of essential hypertension, eczema who presents to the emergency department for evaluation of nausea/vomiting and diarrhea. Patient states he has had multiple liquid stools per day that started 4 days prior to presentation. Also has associated nausea and had multiple episodes of nonbloody emesis on the day of presentation. Is not able to keep anything down. Patient states he feels weak and unwell. No blood in stools. No fever, chills. His son, [id number] tested positive for COVID-19 last week. He denies cough or dyspnea. No chest discomfort, palpitations, abdominal pain, changes in urinary habits. In the emergency department, patient tested positive for COVID-19. Review of Systems 2 Constitutional: Constitutional: Reports fatigue, Reports lethargy, Reports malaise, Reports poor appetite and Reports weakness Cardiovascular: Cardiovascular: Reports no additional cardiovascular complaints Respiratory: Respiratory: Reports no additional respiratory complaints Gastrointestinal: Gastrointestinal: Reports loose stools, Reports nausea and Reports vomiting Genitourinary: Genitourinary: Reports no additional male genitourinary complaints Neurologic: Reports weakness Endocrine: Endocrine: Reports fatigue PMFSH Medical History Skin cancer, basal cell Hypertension Family History Other No family history of coronary artery disease Surgical History H/O shoulder surgery Knee joint replacement status Social History Household Members: None Housing: House Do you presently have visiting nurse or other home services: No Alcohol intake: current Alcohol intake frequency: 0-2 drinks per day Alcohol type: beer Comment: refused alarm Patient Tobacco Use Status: Never used Tobacco Smoked in Last 30 Days: No Use of substances other than those prescribed or required for medical reasons: No Advance Directives: No Advance Directives Information Provided: No service: Yes Current occupational status: retired Meds Allergies Allergy/AdvReac Type Severity Reaction Status Date / Time No Known Allergies Allergy Mild NONE Verified 12/27/21 15:43 Active Medications: Current Medications Sodium Chloride (Ns) 1,000 mls @ 75 mls/hr IVCONT .[id number] NASIR Last Admin: 03/13/23 22:01 Dose: 75 mls/hr Home Medications Medication Instructions Recorded Confirmed Last Taken Type captopril 25 mg tablet 1 tab PO DAILY 12/28/21 03/13/23 03/12/23 History dupilumab 300 mg/2 mL subcutaneous 300 mg subcut Q14D 12/28/21 03/13/23 1 Week Ago History pen injector (Dupixent) ~03/06/23 verapamil 120 mg tablet,extended 1 tab PO DAILY 12/28/21 03/13/23 03/12/23 History release verapamil 180 mg tablet,extended 180 mg PO DAILY 03/13/23 03/13/23 03/12/23 History release Physical Exam 2 Vital Signs and Narrative: Vital Signs: Last Vital Signs Temp 100 F 03/13/23 13:19 Pulse 69 03/13/23 13:19 Resp 20 03/13/23 13:19 BP 126/54 L 03/13/23 21:32 Pulse Ox 96 03/13/23 13:19 BMI result Body Mass Index 22.7 Elderly male lying in bed in no distress Neck supple, no JVD Regular rate and rhythm, S1-S2 heard Regular breath sounds bilaterally, no wheezing or crackles appreciated Abdomen soft nontender, no guarding, no rigidity Patient is awake, alert and oriented to self, place, time and person ; no focal motor deficit Psych: Normal mood No pedal edema Results Labs 03/13/23 13:49 03/13/23 14:28 Labs: Laboratory Results - last 24 hr 03/13/23 03/13/23 13:49 14:28 MCV 92.9 MCH 31.3 MCHC 33.7 RDW 12.9 Plt Count 110 L MPV 12.7 H Immature Gran % (Auto) 0.4 Neut % (Auto) 76.1 H Lymph % (Auto) 14.2 L [place] % (Auto) 9.2 Eos % (Auto) 0.0 Baso % (Auto) 0.1 Lymph # (Auto) 1.1 L [place] # (Auto) 0.7 Eos # (Auto) 0.0 Baso # (Auto) 0.0 Abs Immat Gran (auto) 0.03 Absolute Neuts (auto) 5.7 Absolute Nucleated RBC 0.000 Nucleated RBC % (auto) 0.0 Anion Gap 16 Estim Creat Clear Calc 43.2 Estimated GFR > 60 Random Glucose 87 Calcium 8.2 L Magnesium 2.0 Total Bilirubin 0.6 Direct Bilirubin 0.2 AST 31 ALT 14 Alkaline Phosphatase 71 Total Protein 6.6 Albumin 3.7 Lipase 192 H Influenza Type A (PCR) NEGATIVE Influenza Type B (PCR) NEGATIVE RSV RNA Qual (PCR) NEGATIVE SARS-CoV-2 RNA (RT-PCR) POSITIVE A Imaging Radiologist's Impressions: Impressions Head CT 03/13/23 14:38 IMPRESSION: No acute intracranial pathology. Abdomen/Pelvis CT 03/13/23 14:39 IMPRESSION: Small bilateral pleural effusions. Small free fluid in the pelvis and right lower quadrant. Bilateral perinephric fluid/stranding. Chest X-Ray 03/13/23 21:45 IMPRESSION: Low lung volumes limits evaluation. Mild lower lung field increased markings suspected to be chronic and/or technical due to low lung volumes. There is no focal lung consolidation or evidence for significant pleural effusion. Assessment and Plan (1) COVID-19: Status: Acute (2) Nausea & vomiting: Qualifiers: Vomiting type: unspecified Qualified Code(s): R11.2 - Nausea with vomiting, unspecified Status: Acute Plan This is a 87-year-old male with pertinent history of essential hypertension, eczema who presents to the emergency department for evaluation of nausea/vomiting and diarrhea. #. Nausea/vomiting and diarrhea, likely viral in the setting of COVID-19: Will admit patient and continue crystalloid resuscitation. GI panel pending. Full liquid diet and advance as tolerated. #. COVID-19 infection: Patient is not hypoxemic and no indication for Decadron. Continue isolation precautions #. Essential hypertension: Continue home antihypertensives #. Eczema: On Dupixent every 14 days DVT prophylaxis: Lovenox Full code Quality Stroke Does the patient have a stroke diagnosis?: No VTE Prior VTE?: No VTE Risk Level:: Medical - moderate - high VTE Device Contraindication: Treatment Not Indicated VTE Drug Contraindication: N/A - Med Ordered
[2023-03-13] MEDS: Enoxaparin Sodium 40 MG/0.4 ML SYRINGE SUBCUT (23:29)
[2023-03-13 23:34] LABS: Appearance Urine Clear; Color Urine Yellow; Glucose Urine UA Negative (Negative); Leukocyte Esterase Urine Negative (Negative); Nitrite Urine Negative (Negative); PH 5.5 (5.0-9.0); Specific Gravity - Urine 1.015 (1.005-1.025); Urine Blood Negative (Negative); Urine Ketones Trace mg/dL (Negative); Urine Protein Negative (Neg-Trace)
[2023-03-13 23:44] VITALS: BP 102/51; PULSE 52; RESP 12; TEMP 37; O2SAT 90
[2023-03-14 01:35] VITALS: BP 107/55; PULSE 94; RESP 18; TEMP 36.9; O2SAT 94
[2023-03-14 03:39] VITALS: BP 106/54; PULSE 53; RESP 18; TEMP 36.9; O2SAT 96
[2023-03-14 07:00] LABS: MANUAL DIFF FLAG NO
[2023-03-14 07:03] LABS: Basophils Percent Auto 0.2 % (0-2); Eosinophils Percent Auto 0.4 % (0-4); Hemoglobin 15.5 g/dl (14.0-18.0); Imm Gran Abs Auto 0.01 X10*3/uL (0.00-0.03); Imm Gran Pct Auto 0.2 % (0.0-0.4); Lymphocytes Absolute Auto 1.3 X10*3/uL (1.2-4.9); Lymphocytes Percent Auto 26.9 % (20-40); Mean Corpuscular HGB Conc 33.7 g/dl (31.0-36.0); Mean Corpuscular Hemoglobin 31.5 pg (27.0-33.0); Mean Corpuscular Volume 93.5 fL (80.0-98.0); Mean Platelet Volume 12.3 fL (9.4-12.4); Monocytes Absolute Auto 0.6 X10*3/uL (0.1-1.2); Monocytes Percent Auto 12.3 % (2-11); Red Blood Count 4.92 X10*6/uL (4.60-5.80); Red Cell Distribution Width 13.1 % (11.0-16.0)
[2023-03-14 07:05] LABS: Platelet Count 79 X10*3/uL (160-400)
[2023-03-14 07:16] LABS: Anion Gap 13 (12-20); Blood Urea Nitrogen 13 mg/dL (9-16); Calcium 7.6 mg/dL (8.4-10.2); Carbon Dioxide 23 mmol/L (22-29); Chloride 103 mmol/L (96-108); Creatinine Clr Calc Pharmacy 54.3; Estimated Glomerular Filt Rate > 60; Glucose Random 70 mg/dL (60-115); Potassium 3.7 mmol/L (3.3-5.1); Sodium 135 mmol/L (135-145)
[2023-03-14 08:00] VITALS: BP 133/61; PULSE 57; RESP 20; TEMP 36.6; O2SAT 95
[2023-03-14] MEDS: VerapamiL HCL SR 120 MG TABLET.ER PO (09:21)
[2023-03-14] MEDS: 0.9 % Sodium Chloride Flush 3 ML SYRINGE IVFLUSH (09:22)
[2023-03-14] MEDS: captopriL 25 MG TABLET PO (09:22)
--- NOTE | 2023-03-14 09:25 | MHC.CM.PN ---
SHYLA 03/14/23, EMR REVIEWED PT ADMITTED W/VOMITING AND DIARRHEA, CM CONTACTED PT VIA CELL PHONE D/T COVID 19 STATUS, PT REPORTS HE LIVES ALONE HOWEVER [facility] STAYS W/HIM PERIODICALLY, PT DENIES USE OF DME/SERVICES AND REPORTS [facility] ASSISTS W/CLEANING/HOUSEHOLD NEEDS. PT REPORTS GOAL FOR DC IS TO RETURN HOME W/OUT SERVICES. PT VERIFIES PCP ON FILE, COVID VACC X4 AND REPORTS HE HAS A HCP AT HOME HIS SON MYNOR CARLTON, NUMBER ON FILE AND WILL BE COMPLETING A WILL AT THE END OF THE WEEK.
[2023-03-14] MEDS: 0.9 % Sodium Chloride 1,000 ML 75 ML IVCONT (11:21)
[2023-03-14 11:31] VITALS: BP 123/75; PULSE 80; RESP 18; TEMP 36.9; O2SAT 93
--- NOTE | 2023-03-14 11:55 | PM.DS ---
DS: Providers Provider Date of Service: 03/14/23 Date of admission: 03/13/23 22:38 Primary care physician: Yakov Sandra MD DS: Diagnosis Discharge Diagnosis (1) COVID-19: Status: Acute (2) Nausea & vomiting: Status: Acute DS: Summary Hospital Course Hospital Course: Admission note HPI This is a 87-year-old male with pertinent history of essential hypertension, eczema who presents to the emergency department for evaluation of nausea/vomiting and diarrhea. Patient states he has had multiple liquid stools per day that started 4 days prior to presentation. Also has associated nausea and had multiple episodes of nonbloody emesis on the day of presentation. Is not able to keep anything down. Patient states he feels weak and unwell. No blood in stools. No fever, chills. His son, [id number] tested positive for COVID-19 last week. He denies cough or dyspnea. No chest discomfort, palpitations, abdominal pain, changes in urinary habits. In the emergency department, patient tested positive for COVID-19. Hospital course The patient was admitted for evaluation of diarrhea and nausea secondary to Covid19 infection. no respiratory complaints. treated with zofran and IV fluids with good response as he tolerated advancing diet well with no reported nausea or diarrhea. he participated with PT who cleared him to go back home. he maintained his O2 in 90s on room air. symptomatic medications on discharge. Drink plenty of fluids Zofran for nausea Imodium for diarrhea come back to the hospital for any fever or difficulties breathing Time Attestation Discharge coordination time: Less than 30 minutes Quality: Safe Use of Opioids Does Pt have an Active Cancer Diagnosis on the Problem List?: No Quality: Stroke Does the patient have a stroke diagnosis?: No Physical Exam Vital Signs: Vital Signs: Last Vital Signs Temp 98.4 F 03/14/23 11:31 Pulse 80 03/14/23 11:31 Resp 18 03/14/23 11:31 BP 123/75 03/14/23 11:31 Pulse Ox 93 03/14/23 11:31 O2 Del Method High Flow Nasal C annula 03/14/23 11:31 O2 Flow Rate 31 03/14/23 11:31 FiO2 84 03/14/23 11:31 BMI result Body Mass Index 22.7 Const: Other: Constitutional : Awake, interactive, not in distress Neck : Normal inspection, Supple Cardiovascular : RRR, no JVP, no lower extremity edema Respiratory : good bilateral air entry, no crackles, wheezes or rhonchi Gastrointestinal: soft, lax, Normal bowel sounds, Non tender Skin : Warm, Dry Neurological : Alert & oriented x3, No focal deficit DS: Data Data Completed and Pending Labs on day of discharge: Laboratory Results - last 24 hr 03/13/23 03/13/23 03/13/23 13:49 14:28 23:28 WBC 7.5 RBC 5.47 Hgb 17.1 Hct 50.8 MCV 92.9 MCH 31.3 MCHC 33.7 RDW 12.9 Plt Count 110 L MPV 12.7 H Immature Gran % (Auto) 0.4 Neut % (Auto) 76.1 H Lymph % (Auto) 14.2 L [place] % (Auto) 9.2 Eos % (Auto) 0.0 Baso % (Auto) 0.1 Lymph # (Auto) 1.1 L [place] # (Auto) 0.7 Eos # (Auto) 0.0 Baso # (Auto) 0.0 Abs Immat Gran (auto) 0.03 Absolute Neuts (auto) 5.7 Absolute Nucleated RBC 0.000 Nucleated RBC % (auto) 0.0 Sodium 132 L Potassium 3.8 Chloride 100 Carbon Dioxide 20 L Anion Gap 16 BUN 10 Creatinine 1.12 Estim Creat Clear Calc 43.2 Estimated GFR > 60 Random Glucose 87 Calcium 8.2 L Magnesium 2.0 Total Bilirubin 0.6 Direct Bilirubin 0.2 AST 31 ALT 14 Alkaline Phosphatase 71 Total Protein 6.6 Albumin 3.7 Lipase 192 H Urine Color Yellow Urine Appearance Clear Urine pH 5.5 Ur Specific [place] 1.015 Urine Protein Negative Urine Glucose (UA) Negative Urine Ketones Trace Urine Blood Negative Urine Nitrite Negative Ur Leukocyte Esterase Negative Influenza Type A (PCR) NEGATIVE Influenza Type B (PCR) NEGATIVE RSV RNA Qual (PCR) NEGATIVE SARS-CoV-2 RNA (RT-PCR) POSITIVE A 03/14/23 06:54 WBC 5.0 RBC 4.92 Hgb 15.5 Hct 46.0 MCV 93.5 MCH 31.5 MCHC 33.7 RDW 13.1 Plt Count 79 L D MPV 12.3 Immature Gran % (Auto) 0.2 Neut % (Auto) 60.0 Lymph % (Auto) 26.9 [place] % (Auto) 12.3 H Eos % (Auto) 0.4 Baso % (Auto) 0.2 Lymph # (Auto) 1.3 [place] # (Auto) 0.6 Eos # (Auto) 0.0 Baso # (Auto) 0.0 Abs Immat Gran (auto) 0.01 Absolute Neuts (auto) 3.0 Absolute Nucleated RBC 0.000 Nucleated RBC % (auto) 0.0 Sodium 135 Potassium 3.7 Chloride 103 Carbon Dioxide 23 Anion Gap 13 BUN 13 Creatinine 0.89 Estim Creat Clear Calc 54.3 Estimated GFR > 60 Random Glucose 70 Calcium 7.6 L D Magnesium Total Bilirubin Direct Bilirubin AST ALT Alkaline Phosphatase Total Protein Albumin Lipase Urine Color Urine Appearance Urine pH Ur Specific [place] Urine Protein Urine Glucose (UA) Urine Ketones Urine Blood Urine Nitrite Ur Leukocyte Esterase Influenza Type A (PCR) Influenza Type B (PCR) RSV RNA Qual (PCR) SARS-CoV-2 RNA (RT-PCR) Imaging Chest x-ray: Radiologist's impression: ITS Impressions Head CT 03/13/23 14:38 IMPRESSION: No acute intracranial pathology. Abdomen/Pelvis CT 03/13/23 14:39 IMPRESSION: Small bilateral pleural effusions. Small free fluid in the pelvis and right lower quadrant. Bilateral perinephric fluid/stranding. Chest X-Ray 03/13/23 21:45 IMPRESSION: Low lung volumes limits evaluation. Mild lower lung field increased markings suspected to be chronic and/or technical due to low lung volumes. There is no focal lung consolidation or evidence for significant pleural effusion. Discharge Plan Discharge Anticipated Discharge Date/Time: 03/14/23 11:50 Patient Disposition: Home, Self-Care Discharge Diagnosis: Covid 19 infection Referrals: Yakov Sandra MD [Primary Care Provider] - 1 Week Discharge Medications: New loperamide 2 mg tablet 2 mg PO Q4H PRN (Reason: loose stool) Qty: 10 0RF ondansetron 4 mg tablet,disintegrating 4 mg PO Q8H PRN (Reason: nausea and vomiting) Qty: 10 0RF Continued verapamil 120 mg tablet extended release 1 tab PO DAILY captopril 25 mg tablet 1 tab PO DAILY Dupixent Pen 300 mg/2 mL pen injector 300 mg subcut Q14D verapamil 180 mg tablet extended release 180 mg PO DAILY Discharge Orders: Discharge Order (Routine); Ordered 03/14/23 Ordered By: Placido Leonardo Diet: Advance to usual diet Activity on Discharge: As tolerated Stand Alone Forms: Patient Portal Discharge page Care Plan Goals: Read below Health Concerns: Read below Plan of Treatment: Read below Assessment: You were admitted for treatment of Covid infection complicated by diarrhea and nausea. responded well to medications and IV fluids. Drink plenty of fluids Zofran for nausea Imodium for diarrhea come back to the hospital for any fever or difficulties breathing
--- NOTE | 2023-03-14 12:41 | MHC.CM.PN ---
PT MEDICALLY CLEARED FOR DC HOME SELF CARE, ANTIC PT'S [facility] WILL TRANSPORT
[2023-03-14 15:50] VITALS: BP 152/69; PULSE 68; RESP 18; TEMP 36.6; O2SAT 93
== END 2023-03-14 16:49 | disposition home or self-care (01) ==
LOC: HO.ED 22:21 → HO.EDOVER 22:49 → HO.IMC 03-14 00:04
PROVIDERS: Physician Assistant Medical; Admitting Provider Student in an Organized Health Care Education/Training Program; Emergency Provider Emergency Medicine; PCP Internal Medicine; Visit Provider Student in an Organized Health Care Education/Training Program
DX: U07.1 COVID-19 (principal); R05.9 Cough, unspecified; R11.2 Nausea with vomiting, unspecified; R51.9 Headache, unspecified; I10 Essential (primary) hypertension; R10.9 Unspecified abdominal pain; R00.1 Bradycardia, unspecified; R53.1 Weakness; L30.9 Dermatitis, unspecified; Z79.899 Other long term (current) drug therapy; Z85.820 Personal history of malignant melanoma of skin
CPT/HCPCS: 0241U; 36415; 70450; 71045; 74176; 80048; 80076; 81003; 83690; 83735; 85025; 93005; 96361; 96372; 96374; 97161; 99222; 99285; J1650; J2405

== ENCOUNTER → 2023-03-13 21:29 | Outpatient (BNV) | payer MEDICARE, BC, SELFPAY | PROVIDERS: Admitting Provider Student in an Organized Health Care Education/Training Program; Emergency Provider Emergency Medicine; PCP Internal Medicine; Visit Provider Internal Medicine Cardiovascular Disease | DX: I44.4 Left anterior fascicular block (principal) | CPT/HCPCS: 93010 ==

== ENCOUNTER → 2023-03-13 22:21 | Outpatient (BNV) | payer MEDICARE, BC, SELFPAY | PROVIDERS: Emergency Provider Emergency Medicine; PCP Internal Medicine; Visit Provider Student in an Organized Health Care Education/Training Program | DX: U07.1 COVID-19 (principal); R11.2 Nausea with vomiting, unspecified | CPT/HCPCS: 99222; 99238 ==

== ENCOUNTER 2025-01-20 09:38 | Outpatient (AMB) | payer MEDICARE, BC, SELFPAY ==
[2025-01-20 09:41] VITALS: BP 124/42; PULSE 58; RESP 18; TEMP 36.3; O2SAT 98; BMI 21.7
--- NOTE | 2025-01-20 09:41 | MHC.PC.OV ---
Vital Signs 01/20/25 09:41 Height 5 ft 7 in Weight 138 lb 8 oz BMI 21.7 BP 124/42 L Blood Pressure Location Lt brachial Position Sitting Respiration 18 Pulse 58 Pulse Source Pulse Oximeter Temp 97.3 F Temp Source Temporal Artery Scan Pulse Oximetry (%) 98 Oxygen Delivery Method Room Air Intake Visit Reasons: Request [employer] Science Specialist Required: No Accompanied by: Self / Same As Patient Allergies No Known Allergies Allergy (Mild, Verified 01/20/25 23:21) NONE Medication List - Last Reconciled 01/20/25 by CHRISTIANE Rebolledo captopril 25 mg PO DAILY dupilumab (Dupixent) 300 mg subcut Q2W verapamil ER 180 mg PO DAILY verapamil ER 120 mg PO DAILY Tobacco use date assessed: 01/20/25 Fall risk assessment: No Falls in past year Last assessed Fall Risk: 01/20/25 Dental Screening Dental Screen Date: 01/20/25 Did you have a dental visit in the last 12 months?: No Did you have a dental problem in the last 6 months where you did not have access to dental care?: No Was dental information given to patient?: No HPI Request [employer] HPI Details Previous PCP: Dr. 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 Eye doctor in [place] and did a MRI in September to make sure the cancer did not return. On the top of his head couple spots were frozen. Ophthalmology OBGYN:n/a Past medical history:HTN, melanoma Medications: Family HX: Problem: The patient is an 89-year-old male presenting to [facility] care. He was seeing Dr. Sandra who retired. His last visit with his prior provider was in August, at which time he had a complete physical with blood work. Patient reports seeing Dr. Sandra once a year and occasional throughout the year if he is sick. The patient has a history of cancer in his right eye, which started on the skin and then was found behind the eye. He underwent major surgery in [place], followed by 6.5 weeks of daily proton therapy. He had a follow-up MRI in September in [place] to monitor for recurrence, which was negative. The patient follows with dermatology every six months for skin cancer and recently had spots frozen on the top of his head. The patient's medical history is also significant for hypertension, which is reportedly well-controlled with Verapamil 180 mg, Verapamil 120mg and Captopril 25 mg. He also receives Dupixent 300 mg injections every two weeks for eczema. Past surgical history includes two rotator cuff surgeries on each shoulder, left knee replacement. His recent lab work from August showed a triglyceride level of 156. The patient denies any family history of melanoma. Patient denies chest pain, shortness of breath, heart palpitation or dizziness Denies abdominal pain/change in bowel habits Denies any urinary issues Denies pain, but reports that every once in a while his left knee acts up. [facility] Medical History (Updated 01/20/25 @ 23:34 by CHRISTIANE Rebolledo) Eczema Skin cancer, basal cell Hypertension Surgical History H/O shoulder surgery Knee joint replacement status Family History Other No family history of coronary artery disease Social History Household Members: None Housing: House Do you presently have visiting nurse or other home services: No Alcohol intake: current Alcohol intake frequency: 0-2 drinks per day Alcohol type: beer Comment: refused alarm Patient Tobacco Use Status: Never used Tobacco e-Cigarette/Vaping Use: Never Used service: Yes Current occupational status: retired Questionnaire PHQ-9 Over the last 2 weeks, how often have you been bothered by any of the following problems? 1. Little interest or pleasure in doing things: not at all 2. Feeling down, depressed, or hopeless: not at all 3. Trouble falling or staying asleep, or sleeping too much: not at all 4. Feeling tired or having little energy: not at all 5. Poor appetite or overeating: not at all 6. Feeling bad about yourself - or that you are a failure or have let yourself or your family down: not at all 7. Trouble concentrating on things, such as reading the newspaper or watching television: not at all 8. Moving or speaking so slowly that other people could have noticed. Or the opposite - being so fidgety or restless that you have been moving around a lot more than usual: not at all 9. Thoughts that you would be better off or of hurting yourself in some way: not at all Total score: 0 Depression Screening Interpretation: Negative Depression Screening Done: Yes Source: Developed by Drs. Matthieu Guerrero, Chen Pereira, Josh Hatch and colleagues, with an educational matthew from [employer]. Thrive Questionnaire Date Thrive assessed: 03/14/23 I am a: Patient What is your living situation today?: I have a steady place to live Within the past 12 months, did the food you bought not last and you didn't have the money to get more?: Never true Within the past 12 months, did you worry whether your food would run out before you got money to buy more?: Never true Do you have trouble paying for medicines?: No Do you have trouble getting transportation to medical appointments?: No Do you have trouble paying your heating and electricity bill?: No Do you have trouble taking care of your child, family member or friend?: No Do you have trouble with day-to-day activities such as bathing, preparing meals, shopping, managing finances, etc.?: No Are you currently unemployed and looking for a job?: No Are you interested in more education?: No Please select the resources that you would like help with: None Currently or been in a relationship where the following occur: No concerns reported THRIVE Score: 0 AUDIT C Alcohol Use Questionnaire (AUDIT-C) 1. How often do you have a drink containing alcohol?: Monthly or less 2. How many drinks containing alcohol do you have on a typical day when you are drinking?: 1 or 2 3. How often do you have six or more drinks on one occasion?: Never Total Score: 1 FARHAN-7 AMB Questionnaire FARHAN-7 Feeling nervous, anxious, or on edge: 0 = Not at all Not being able to stop or control worryin = Not at all Worrying too much about different things: 0 = Not at all Trouble relaxin = Not at all Being so restless that it is hard to sit still: 0 = Not at all Becoming easily annoyed or irritable: 0 = Not at all Feeling afraid as if something awful might happen: 0 = Not at all Total FARHAN-7 score (0-4 normal; 5-9 mild; 10-14 moderate; 15-21 severe): 0 Source: Developed by Drs. Matthieu Guerrero, Chen Pereira, Josh Hatch and colleagues, with an educational matthew from [employer]. Review of Systems Const Denies headache(s) Eyes Denies loss of vision ENT Denies vertigo, Denies dizziness, Denies headache(s) and Denies sore throat Card Denies chest pain, Denies leg edema and Denies lightheadedness Resp Denies cough, Denies hemoptysis and Denies wheezing GI Denies abdominal pain, Denies melena, Denies constipation, Denies diarrhea and Denies vomiting Denies dysuria, Denies urinary frequency and Denies urinary urgency Musc Reports arthralgias (left knee occasionally), Denies joint swelling, Denies numbness and Denies tingling Neuro Denies Abnormal speech present, Denies behavioral changes, Denies vertigo, Denies dizziness, Denies headache(s), Denies loss of vision, Denies memory loss, Denies numbness and Denies tingling Psych Denies anxiety, Denies behavioral changes, Denies depression, Denies memory loss and Denies panic attacks Carroll/Lymph Denies easy bleeding and Denies easy bruising Aller/Immun Denies wheezing Physical exam (Primary Care) Vital Signs: Last Vital Signs Temp 97.3 F 01/20/25 09:41 Pulse 58 01/20/25 09:41 Resp 18 01/20/25 09:41 BP 124/42 L 01/20/25 09:41 Pulse Ox 98 01/20/25 09:41 Oxygen Delivery Method Room Air 01/20/25 09:41 BMI result Body Mass Index 21.7 Tobacco/Smoking Status: Tobacco use Status Tobacco use date assessed 01/20/25 01/20/25 09:50 Patient Tobacco Use Status Never used Tobacco 01/20/25 09:50 e-Cigarette/Vaping Use Never Used 01/20/25 09:50 PHQ-9: PHQ-9 Score PHQ-9: Total score 0 01/20/25 10:29 Depression Screening Interpretation: Negative Thrive Assessment: Date of Thrive Assessment Date Thrive assessed 12/19/23 10/27/25 09:50 Currently or been in a relationship where the following occur: No concerns reported Const General: healthy appearing, no acute distress, alert and awake Nutritional Appearance: well nourished Orientation/consciousness: oriented to person, oriented to place and oriented to time HENMT Ears: TM's normal bilaterally General nose exam: Normal nasal mucous membranes and turbinates present Eyes Conjunctivae: conjunctivae normal Sclerae: sclerae normal Pupils: Equal, round and reactive pupils present Neck Neck: Yes no lymphadenopathy and Yes no JVD Thyroid: Thyroid normal Carotids: no bruits Resp Effort & Inspection: normal respiratory effort and not tachypneic Auscultation: no crackles, no rales, no rhonchi and no wheezes Cardio Rate: regular rate Rhythm: regular rhythm Heart sounds: no murmurs and normal S1 and S2 GI Palpation (GI): Soft to palpation, nontender, no hepatomegaly and no splenomegaly Auscultation: normal bowel sounds General: Yes no CVA tenderness Back/Spine/Pelvis Back: no CVA tenderness Skin General skin exam: no rashes or lesions noted and dry skin Neuro General: oriented to person, oriented to place and oriented to time Cranial nerves: Yes Equal, round and reactive pupils present Speech: No Abnormal speech present Gait exam (Neuro): Normal gait present Motor exam (neuro): no tremor noted Extrem Right upper extremity: full ROM Left upper extremity: full ROM Right lower extremity: full ROM and knee Details: no tenderness and no swelling; no edema Left lower extremity: full ROM; no edema Psych Mental Status: mental status grossly normal Speech and movement: Normal speech and movement present Affect: normal affect Attitude: cooperative Thought process: Normal thought process present Coding Level of Care Code Est Pt Level 4 (45770) Diagnoses Eczema, unspecified type L30.9 Eczema type: unspecified Hypertriglyceridemia E78.1 Hypertension, unspecified type I10 Hypertension type: unspecified 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 The prescription was clarified and will be continued. (2) Hypertriglyceridemia: Code(s): E78.1 - Pure hyperglyceridemia Category: Medical Plan: Recent labs showed a slightly elevated triglyceride level of 156 mg/dL. The patient was counseled on dietary modifications, including reducing the intake of processed foods and sweets. The level will be rechecked with his annual labs next year. (3) Hypertension: Code(s): I10 - Essential (primary) hypertension Category: Medical Qualifiers: Hypertension type: unspecified Qualified Code(s): I10 - Essential (primary) hypertension Plan: The patient's hypertension is stable and well-controlled with his current medication regimen. He will continue Verapamil 180 mg, Verapamil 120 mg and Captopril 25 mg. Prescriptions for both medications will be sent to his pharmacy to have on file for his next refill in January. Reinforced low-salt diet and adequate hydration. 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 A recent MRI in September was negative for recurrence. He will continue to follow up with his ophthalmology for monitoring. (5) Skin cancer, basal cell: Code(s): C44.91 - Basal cell carcinoma of skin, unspecified Category: Medical Plan: The patient has a history of skin cancer and is followed by dermatology every six months. He will continue with routine dermatological follow-up. Orders: Orders Comprehensive Snyder. Panel Fast 1 Year C43.9 - Malignant melanoma of skin, unspecified, I10 - Essential (primary) hypertension, N30.90 - Cystitis, unspecified without hematuria, R31.9 - Hematuria, unspecified, Z00.00 - Encounter for general adult medical examination without abnormal findings UA CC w/rflx Micro + Cult 1 Year C43.9 - Malignant melanoma of skin, unspecified, I10 - Essential (primary) hypertension, N30.90 - Cystitis, unspecified without hematuria, R31.9 - Hematuria, unspecified, Z00.00 - Encounter for general adult medical examination without abnormal findings PSA,Total (Free>4and<10) 1 Year C43.9 - Malignant melanoma of skin, unspecified, I10 - Essential (primary) hypertension, N30.90 - Cystitis, unspecified without hematuria, R31.9 - Hematuria, unspecified, Z00.00 - Encounter for general adult medical examination without abnormal findings Vitamin D 25-OH Total 1 Year C43.9 - Malignant melanoma of skin, unspecified, I10 - Essential (primary) hypertension, N30.90 - Cystitis, unspecified without hematuria, R31.9 - Hematuria, unspecified, Z00.00 - Encounter for general adult medical examination without abnormal findings Complete Blood Count Auto Diff 1 Year C43.9 - Malignant melanoma of skin, unspecified, I10 - Essential (primary) hypertension, N30.90 - Cystitis, unspecified without hematuria, R31.9 - Hematuria, unspecified, Z00.00 - Encounter for general adult medical examination without abnormal findings Lipid Panel 1 Year C43.9 - Malignant melanoma of skin, unspecified, I10 - Essential (primary) hypertension, N30.90 - Cystitis, unspecified without hematuria, R31.9 - Hematuria, unspecified, Z00.00 - Encounter for general adult medical examination without abnormal findings Hemoglobin A1c 1 Year C43.9 - Malignant melanoma of skin, unspecified, I10 - Essential (primary) hypertension, N30.90 - Cystitis, unspecified without hematuria, R31.9 - Hematuria, unspecified, Z00.00 - Encounter for general adult medical examination without abnormal findings Microalbumin, Random (w Creat) 1 Year C43.9 - Malignant melanoma of skin, unspecified, I10 - Essential (primary) hypertension, N30.90 - Cystitis, unspecified without hematuria, R31.9 - Hematuria, unspecified, Z00.00 - Encounter for general adult medical examination without abnormal findings Medications: New verapamil ER 180 mg PO DAILY 90 tabs 3RF Changed From captopril 1 tab PO DAILY To captopril 25 mg PO DAILY 90 tabs 3RF From verapamil ER 1 tab PO DAILY To verapamil ER 120 mg PO DAILY 90 tabs 3RF
== END 2025-01-20 10:52 | disposition home or self-care (01) ==
LOC: HO.HMCH 09:39
DX: L30.9 Dermatitis, unspecified (principal); E78.1 Pure hyperglyceridemia; I10 Essential (primary) hypertension; C43.30 Malignant melanoma of unspecified part of face; C44.91 Basal cell carcinoma of skin, unspecified

== ENCOUNTER → 2025-01-20 09:38 | Outpatient (BNVA) | payer MEDICARE, BC, SELFPAY | PROVIDERS: PCP Internal Medicine | DX: L30.9 Dermatitis, unspecified (principal); E78.1 Pure hyperglyceridemia; I10 Essential (primary) hypertension; C43.30 Malignant melanoma of unspecified part of face; Z13.31 Encounter for screening for depression | CPT/HCPCS: 96127; 99212 ==